=== PATIENT | female | born 1935 | race Caucasian/White ===

== ENCOUNTER 2018-02-20 12:42 | Emergency (ER) | payer MEDICARE, MEDICAID ==
[~2018-02-20] VITALS: Ht 162.6 cm; Wt 63.5 kg
[2018-02-20] MEDS ORDERED: LEVO88TA5 PO (13:47)
[2018-02-20] MEDS ORDERED: NA P133E RC (13:47)
[2018-02-20] MEDS ORDERED: MAGN400O6 PO (13:47)
[2018-02-20] MEDS ORDERED: BISA10SU12 RC (13:47)
[2018-02-20] MEDS ORDERED: CHOL100045 PO (13:47)
[2018-02-20] MEDS ORDERED: POTA10CA43 PO (13:47)
[2018-02-20] MEDS ORDERED: FURO-152 PO (13:47)
[2018-02-20] MEDS ORDERED: ATOR10TA PO (13:47)
[2018-02-20] MEDS ORDERED: MEMA5TAB PO (13:47)
[2018-02-20] MEDS ORDERED: PRED1TAB PO (13:47)
[2018-02-20] MEDS ORDERED: ASPI81TA31 PO (13:47)
[2018-02-20] MEDS ORDERED: FOLI1TAB16 PO (13:47)
[2018-02-20 13:55] LABS: BASOPHILS % (AUTO) 0.3 % (0.0-2.0); EOSINOPHILS # (AUTO) 0.2 K/uL (0.0-0.7); EOSINOPHILS % (AUTO) 1.2 % (0.0-7.0); HEMATOCRIT 41.8 % (31.2-41.9); HEMOGLOBIN 13.9 g/dL (10.9-14.3); LYMPHOCYTES # (AUTO) 1.1 K/uL (20.0-40.0); LYMPHOCYTES % (AUTO) 7.6 % (20.5-51.5); MEAN CORPUSCULAR HEMOGLOBIN 28.5 uug (24.7-32.8); MEAN CORPUSCULAR HGB CONC 33 g/dL (32.3-35.6); MEAN CORPUSCULAR VOLUME 85.6 fL (75.5-95.3); MONOCYTES # (AUTO) 0.9 K/uL (2.0-10.0); MONOCYTES % (AUTO) 6.3 % (0.0-11.0); NEUTROPHILS # (AUTO) 11.8 K/uL (1.8-8.9); NEUTROPHILS % (AUTO) 84.6 % (38.5-71.5); PLATELET COUNT (AUTO) 233 K/uL (179-408); RED BLOOD CELL COUNT(AUTO) 4.88 MIL/uL (3.63-4.92)
[2018-02-20] MEDS ORDERED: ONDANSETRON 4 MG/2 ML VIAL IV ONE (14:00)
[2018-02-20] MEDS ORDERED: HYDROMORPHONE 1 MG/1 ML DISP.SYRIN IV ONE (14:00)
[2018-02-20] MEDS ORDERED: ONDANSETRON 4 MG/2 ML VIAL ONE (14:01)
[2018-02-20] MEDS ORDERED: HYDROMORPHONE 2 MG/1 ML DISP.SYRIN ONE (14:01)
[2018-02-20 14:04] LABS: CARBON DIOXIDE 30 mmol/L (21-32); CHLORIDE 104 mmol/L (98-107); CREATININE 1.1 mg/dL (0.6-1.3); GLUCOSE 102 mg/dL (74-106); POTASSIUM 3.9 mmol/L (3.5-5.1); UREA NITROGEN, BLOOD 19 mg/dL (7-18)
[2018-02-20 14:10] LABS: ALANINE AMINOTRANSFERASE 18 U/L (14-59); ALKALINE PHOSPHATASE 112 U/L (50-136); ASPARTATE AMINOTRANSFERASE 19 U/L (15-37); BILIRUBIN,DIRECT 0.2 mg/dL (0.0-0.2); BILIRUBIN,TOTAL 0.8 mg/dL (0.2-1.0); TOTAL PROTEIN, SERUM 7.9 g/dL (6.4-8.2)
--- NOTE | 2018-02-20 16:28 | NUR ---
PT ABLE TO AMBULATE WITH ASSISSTANCE, NO PAIN EXPRESSED WHILE WALKING.
--- NOTE | 2018-02-20 16:30 | NUR ---
CALLED RAMAKRISHNA TO TRANSFER THE PT BACK TO [facility]. ETA [id number]. TICKET # [id number]
--- NOTE | 2018-02-20 18:04 | NUR ---
RAMAKRISHNA AT BEDSIDE TO TRANSFER THE PT BACK TO [facility].
[2018-02-20 18:05] VITALS: BP 121/55
--- NOTE | 2018-02-20 18:08 | NUR ---
CALLED [facility] CONK[facility] AND LET THEM THAT THE PT IS COMING BACK
== END 2018-02-20 18:10 | disposition home or self-care (01) ==
LOC: ER 12:42
DX: S70.02XA Contusion of left hip, initial encounter (principal); I25.10 Atherosclerotic heart disease of native coronary artery without angina pectoris; I10 Essential (primary) hypertension; E03.9 Hypothyroidism, unspecified; R07.89 Other chest pain; Z88.5 Allergy status to narcotic agent; Z91.048 Other nonmedicinal substance allergy status; Z79.82 Long term (current) use of aspirin; Z79.899 Other long term (current) drug therapy; W18.39XA Other fall on same level, initial encounter; Y93.89 Activity, other specified; Y92.89 Other specified places as the place of occurrence of the external cause; Y99.8 Other external cause status
CPT/HCPCS: 36415; 70030-TC; 71045; 72170; 72192; 73502; 83605; 85025; 85730; 87040; 93005; A4663; J1170; J2405

== ENCOUNTER 2018-03-03 15:30 | Inpatient (IN) | payer MEDICARE, MEDICAID ==
[~2018-03-03] VITALS: Ht 152.4 cm; Wt 48.5 kg
[~2018-03-03 15:30] MED LIST: ASPI81TA31 PO; ATOR10TA PO; BISA10SU12 RC; CHOL100045 PO; FOLI1TAB16 PO; FURO-152 PO; LEVO88TA5 PO; MAGN400O6 PO; MEMA5TAB PO; NA P133E RC; POTA10CA43 PO; PRED1TAB PO
[2018-03-03] MEDS ORDERED: IV NORMAL SALINE 500 ML BAG IV ONE (15:45)
[2018-03-03] MEDS ORDERED: HYDR-3326 PO (16:05)
[2018-03-03] MEDS ORDERED: ACET-2154 PO (16:05)
[2018-03-03 16:06] LABS: BASOPHILS # (AUTO) 0.1 K/uL (0.0-8.0); BASOPHILS % (AUTO) 0.7 % (0.0-2.0); EOSINOPHILS # (AUTO) 0.2 K/uL (0.0-0.7); EOSINOPHILS % (AUTO) 2.7 % (0.0-7.0); HEMATOCRIT 38.4 % (31.2-41.9); HEMOGLOBIN 12.4 g/dL (10.9-14.3); LYMPHOCYTES # (AUTO) 0.9 K/uL (20.0-40.0); LYMPHOCYTES % (AUTO) 11.6 % (20.5-51.5); MEAN CORPUSCULAR HEMOGLOBIN 27.5 uug (24.7-32.8); MEAN CORPUSCULAR HGB CONC 32 g/dL (32.3-35.6); MEAN CORPUSCULAR VOLUME 85.1 fL (75.5-95.3); MONOCYTES # (AUTO) 0.6 K/uL (2.0-10.0); MONOCYTES % (AUTO) 7.2 % (0.0-11.0); NEUTROPHILS # (AUTO) 6.2 K/uL (1.8-8.9); NEUTROPHILS % (AUTO) 77.8 % (38.5-71.5); PLATELET COUNT (AUTO) 251 K/uL (179-408); RED BLOOD CELL COUNT(AUTO) 4.51 MIL/uL (3.63-4.92)
[2018-03-03 16:17] LABS: CARBON DIOXIDE 28 mmol/L (21-32); CHLORIDE 103 mmol/L (98-107); CREATININE 1.2 mg/dL (0.6-1.3); GLUCOSE 112 mg/dL (74-106); POTASSIUM 4.4 mmol/L (3.5-5.1); UREA NITROGEN, BLOOD 25 mg/dL (7-18)
[2018-03-03] MEDS ORDERED: FUROSEMIDE 20 MG/2 ML VIAL IV ONE (17:30)
[2018-03-03] MEDS ORDERED: FUROSEMIDE 40 MG/4 ML VIAL ONE (17:32)
[2018-03-03] MEDS ORDERED: ONDANSETRON IV *ER 4 MG/2 ML VIAL IV ONE (17:45)
[2018-03-03] MEDS ORDERED: MORPHINE SULFATE 4 MG/1 ML DISP.SYRIN IV ONE (17:45)
[2018-03-03 17:46] LABS: *BILIRUBIN,URIN NEGATIVE (NEGATIVE); *BLOOD, URINE Trace-lysed (NEGATIVE); *COLOR,URINE YELLOW (YELLOW); *KETONES,URINE NEGATIVE (NEGATIVE); *PROTEIN,URINE NEGATIVE (NEGATIVE); *UROBILINOGEN,URINE 0.2 E.U./dl (NORMAL); LEUKOCYTE ESTERASE ,URINE 1+ (NEGATIVE); NITRITE, URINE POSITIVE (NEGATIVE); UGLUCOSE NEGATIVE (NEGATIVE)
[2018-03-03 17:51] LABS: *CLARITY,URINE CLOUDY (CLEAR)
[2018-03-03 17:52] LABS: BACTERIA,URINE MANY /HPF (NONE SEEN); RBC,URINE 0-3 /HPF (0-3)
[2018-03-03 17:53] LABS: SQUAMOUS EPITHELIAL CELL,UR MANY /HPF (NONE SEEN)
[2018-03-03] MEDS ORDERED: ONDANSETRON 4 MG/2 ML VIAL ONE (17:53)
[2018-03-03] MEDS ORDERED: MORPHINE SULFATE 4 MG/1 ML DISP.SYRIN ONE (17:53)
--- NOTE | 2018-03-03 17:53 | NUR ---
MSE COMPLETED, PT TO BE TELE ADMIT, BELONGINGS LIST DONE. PT POSITIONED FOR COMFORT, PER JIGAR RN-CHIEF PETROLEUM ENGINEER, ALL NURSES ARE MAXED OUT AND PT JOY HELD TILL NEXT SHIFT. Jed OHARA THE NURSE SUP CONFIRMED STATUS.
[2018-03-03] MEDS ORDERED: CEFTRIAXONE 1 G VIAL ONE (18:14)
[2018-03-03] MEDS ORDERED: LORAZEPAM 2 MG/1 ML VIAL ONE (18:14)
[2018-03-03] MEDS ORDERED: CEFTRIAXONE 1 G in IV DEXTROSE 5% 50 ML IV ONE (18:15)
[2018-03-03] MEDS ORDERED: LORAZEPAM 2 MG/1 ML VIAL IV ONE (18:15)
[2018-03-03 18:54] LABS: ALANINE AMINOTRANSFERASE 15 U/L (14-59); ALKALINE PHOSPHATASE 110 U/L (50-136); ASPARTATE AMINOTRANSFERASE 25 U/L (15-37); BILIRUBIN,DIRECT 0.2 mg/dL (0.0-0.2); BILIRUBIN,TOTAL 0.6 mg/dL (0.1-1.0)
[2018-03-03 18:55] LABS: LIPASE 110 U/L (73-393); TOTAL PROTEIN, SERUM 6.8 g/dL (6.4-8.2)
--- NOTE | 2018-03-03 19:04 | NUR ---
PT SLEEPING NO DISTRESS NOTED, SBAR REPORT TO ED RN.
--- NOTE | 2018-03-03 20:00 | NUR ---
Pt. admitted to [facility] , under care of Dr. Hansel Daley. Diagnosis: UTI Belongs List completed. MRSA swab done. Report given to Patrice BLAIR.
[2018-03-03] MEDS ORDERED: ONDANSETRON 4 MG/2 ML VIAL IV PRN (20:15)
[2018-03-03] MEDS ORDERED: BISACODYL 10 MG SUPP.RECT RC PRN (20:15)
[2018-03-03] MEDS ORDERED: ACETAMINOPHEN 325 MG TABLET PO PRN (20:15)
[2018-03-03] MEDS ORDERED: HYDROCODONE/APAP 5-325MG TABLET PO PRN (20:15)
[2018-03-03] MEDS ORDERED: FLEET ENEMA 133 ML BOTTLE RC PRN (20:15)
[2018-03-03] MEDS ORDERED: MAGNESIUM HYDROXIDE 30 ML LIQUID UDC PO PRN (20:15)
[2018-03-03 20:17] VITALS: BP 119/63
[2018-03-03] MEDS: IV NS 1000 ML 1,000 ML IV PRN (20:35)
[2018-03-03] MEDS: DOCUSATE SODIUM 100 MG CAPSULE PO SCH (20:51)
[2018-03-03] MEDS: MORPHINE SULFATE 2 MG/1 ML DISP.SYRIN IV PRN (20:52)
--- NOTE | 2018-03-03 22:00 | NUR ---
Admitted the 82 y/o female patient from ER by apryl . Pt has admitting diagnosis of UTI and general weakness . Pt is normal sinus rhythm on the monitor , vital signs stable . Pt is lethargic and slow to respond , pt had Ativan in ER , pt has a 20 gauge IV in the left AC , no signs of infiltration or infection, Initial assessment and physical assessment done , pt on a continuous IV drip of Normal saline at 70 mL / hr .Will continue to monitor patient for safety . Pt appears thin and has a failure to thrive . Pt has rib bones showing underneath the skin , fat stores look depleted . Pt has no chest pain , no shortness of breath , no nausea / vomiting . Pt is incontinent with a diaper .
[2018-03-04] VITALS: BP 122/61
[2018-03-04 04:00] VITALS: BP 118/66
[2018-03-04] MEDS: LEVOTHYROXINE SODIUM 88 MCG TABLET PO SCH (06:09)
[2018-03-04] MEDS: PANTOPRAZOLE SODIUM 40 MG TABLET.DR PO SCH (06:09)
--- NOTE | 2018-03-04 06:20 | NUR ---
Patient had medications crushed ( Protonix , Levothyroxine , and [place] ) and given in applesauce . Patient would not eat the applesauce , she spit some of it out . Could not convince patient to eat the applesauce with the medications.
[2018-03-04 06:24] LABS: BASOPHILS # (AUTO) 0.1 K/uL (0.0-8.0); BASOPHILS % (AUTO) 0.8 % (0.0-2.0); EOSINOPHILS # (AUTO) 0.4 K/uL (0.0-0.7); EOSINOPHILS % (AUTO) 5.1 % (0.0-7.0); HEMATOCRIT 37.2 % (31.2-41.9); HEMOGLOBIN 12.5 g/dL (10.9-14.3); LYMPHOCYTES # (AUTO) 1.5 K/uL (20.0-40.0); LYMPHOCYTES % (AUTO) 17.1 % (20.5-51.5); MEAN CORPUSCULAR HEMOGLOBIN 28.8 uug (24.7-32.8); MEAN CORPUSCULAR HGB CONC 34 g/dL (32.3-35.6); MEAN CORPUSCULAR VOLUME 85.4 fL (75.5-95.3); MONOCYTES # (AUTO) 0.7 K/uL (2.0-10.0); MONOCYTES % (AUTO) 8.3 % (0.0-11.0); NEUTROPHILS # (AUTO) 5.9 K/uL (1.8-8.9); NEUTROPHILS % (AUTO) 68.7 % (38.5-71.5); PLATELET COUNT (AUTO) 227 K/uL (179-408); RED BLOOD CELL COUNT(AUTO) 4.35 MIL/uL (3.63-4.92); WHITE BLOOD COUNT (AUTO) 8.6 K/uL (3.8-11.8)
[2018-03-04 06:57] LABS: ALANINE AMINOTRANSFERASE 14 U/L (14-59); ALKALINE PHOSPHATASE 104 U/L (50-136); ASPARTATE AMINOTRANSFERASE 16 U/L (15-37); BILIRUBIN,TOTAL 0.5 mg/dL (0.2-1.0); CARBON DIOXIDE 30 mmol/L (21-32); CHLORIDE 105 mmol/L (98-107); CREATININE 1.1 mg/dL (0.6-1.3); MAGNESIUM 1.7 mg/dL (1.8-2.4); PHOSPHOROUS 3.7 mg/dL (2.5-4.9); POTASSIUM 3.3 mmol/L (3.5-5.1); TOTAL PROTEIN, SERUM 6.3 g/dL (6.4-8.2); UREA NITROGEN, BLOOD 18 mg/dL (7-18)
[2018-03-04 06:58] LABS: THYROID STIMULATING HORMONE 2.852 mIU/mL (0.358-3.740)
--- NOTE | 2018-03-04 07:25 | NUR ---
RECEIVED PT IN BED AWAKE, NOTED THE PT TO BE EMOTIONAL, CRYING AND SAD. ASKED PT IF EVERYTHING WAS OKAY OR IF ANYTHING WAS WRONG, PT IS UNABLE TO RESPONSE, CONTINUE TO BE EMOTIONAL. NO IMMEDIATE S/S OF SOB, PAIN, DISTRESS OR DISCOMFORT
[2018-03-04 07:43] LABS: IRON, SERUM 53 ug/dL (50-175)
[2018-03-04 07:44] LABS: CHOLESTEROL 145 mg/dL (<200); HDL CHOLESTEROL 61 mg/dL (40-60); TRIGLYCERIDES 74 MG/DL (30-150)
[2018-03-04] MEDS: MEMANTINE HCL 5 MG TABLET PO SCH ×3 (08:36→17:19)
[2018-03-04] MEDS: predniSONE 1 MG TABLET PO SCH (08:36)
[2018-03-04] MEDS: ASPIRIN 81 MG TAB.CHEW PO SCH (08:36)
[2018-03-04] MEDS: FOLIC ACID 1 MG TABLET PO SCH (08:36)
[2018-03-04] MEDS: CHOLECALCIFEROL 1,000 UNIT TABLET PO SCH (08:36)
[2018-03-04] MEDS: MORPHINE SULFATE 2 MG/1 ML DISP.SYRIN IV PRN ×3 (08:37→23:30)
--- NOTE | 2018-03-04 08:50 | NUR ---
PT WAS NOTED TO BE MOANING AND C/O OF PAIN, MORPHINE GIVEN. PT TOOK MORNING MEDS CRUSHED WITH APPLE SAUCE. TOOK ABOUT 15-20 MINUTES TO GIVE PT'S MORNING MEDICATIONS. EXPLAINED MEDICATIONS TO PT. PT AOX1. PT IS NOTED TO BE CRYING AND SAD
[2018-03-04 09:42] LABS: GLUCOSE 77 mg/dL (74-106)
[2018-03-04] MEDS: Z GUARD REMEDY PASTE 57 GM TUBE TOP SCH ×2 (09:59→20:35)
--- NOTE | 2018-03-04 10:00 | NUR ---
SEEN AND EVALUATED BY DR LEYVA
[2018-03-04] MEDS: MAGNESIUM OXIDE 400 MG TABLET PO ONE ×2 (10:15→14:25)
[2018-03-04] MEDS: POTASSIUM CHLORIDE 20 MEQ TAB.PRT.SR PO ONE ×2 (10:15→14:25)
[2018-03-04] MEDS: IV NS 1000 ML 1,000 ML IV PRN (10:55)
--- NOTE | 2018-03-04 14:37 | NUR ---
MAG AND K-DUR PILLS CRUSHED AND MIXED WITH APPLE SAUCE. PT SPIT OUT MEDICATIONS.
[2018-03-04 16:21] VITALS: BP 139/76
[2018-03-04] MEDS: CEFTRIAXONE 1 G in IV DEXTROSE 5% 50 ML IV SCH (17:19)
--- NOTE | 2018-03-04 17:27 | NUR ---
PT REFUSED 17OO HRS SCHEDULED MEDICATION
[2018-03-04] MEDS: MAGNESIUM SULFATE/D5W 100 ML IV SCH ×2 (18:06→19:05)
--- NOTE | 2018-03-04 18:28 | NUR ---
PT HAS BEEN EMOTIONAL THROUGHOUT THE DAY BY CRYING, SCREAMING AND CALLING OUT GRISEL AND AMADO, AND ASKING FOR HER DOG. NOTED THE PT WITH A BRUISE ON HER LEFT HIP. DR AWARE ABOUT THE PT'S CRYING AND BRUISE. PT HAS BEEN C/O OF BILATERAL LOWER EXTREMITIES PAIN. AIR MATTRESS IN PLACE. PT HAS BEEN NON-COMPLIANT WITH PO MEDICATIONS.
--- NOTE | 2018-03-04 19:45 | NUR ---
Patient in bed turned to right side. IV intact and patent. Currently infusing remaining magnesium. To administer potassium as ordered after completion. Patient constantly crying. Attempts made to calm patient down. Unsuccessful. Patient calling out various names. Patient incontinent. No bm noted currently. Will continue to monitor.
[2018-03-04 20:00] VITALS: BP 161/84
[2018-03-04] MEDS: DOCUSATE SODIUM 100 MG CAPSULE PO SCH (20:34)
--- NOTE | 2018-03-04 20:34 | NUR ---
Patient offered colace medication but spit medication out. Patient assertively refusing medications.
[2018-03-04] MEDS: POTASSIUM CHLORIDE 50 ML IV SCH ×4 (20:37→23:37)
--- NOTE | 2018-03-04 21:49 | NUR ---
Potassium infusing as ordered. IV site remains intact. No complaints of burning. No s/s of infiltration. Noted patient continues to remain hyperverbal and verbalization of delusion. No increase in agitation. Safety measure in place. Bed alarm initiated. Frequent visual checks. Call light in reach. Will continue to monitor.
[2018-03-05] VITALS: BP 120/87
--- NOTE | 2018-03-05 01:42 | NUR ---
Patient in pain. Pain medication administered and effective. Carmen-care provided with assistance from ENGAGEMENT QUALITY CONSULTANT. Z-guard applied as ordered Linens and gown changed as well. Patient uncooperative during care. Patient continues to verbalize delusion. Patient IV site noted with no s/s of infiltration. Call light in reach. Bed alarm on. Will continue to monitor.
--- NOTE | 2018-03-05 03:15 | NUR ---
L AC 20 gauge dislodged. Patient required two person assistance to start new IV line. New L fore arm 22 gauge patent and intact.
[2018-03-05] MEDS: MORPHINE SULFATE 2 MG/1 ML DISP.SYRIN IV PRN ×2 (03:31→12:21)
--- NOTE | 2018-03-05 03:38 | NUR ---
Patient noted to be in pain. Pain medication administered. Minimizing sedating medication as directed however patient continues to verbalize delusion which seem to be affecting patient comfort.
[2018-03-05 04:00] VITALS: BP 123/71
--- NOTE | 2018-03-05 05:23 | NUR ---
Turned and repositioned every 2 hours. Moira-tory as ordered. Pain medication effective and patient able to get rest. Blood drawn by ammonia print operator.
[2018-03-05] MEDS: LEVOTHYROXINE SODIUM 88 MCG TABLET PO SCH (06:04)
[2018-03-05] MEDS: PANTOPRAZOLE SODIUM 40 MG TABLET.DR PO SCH (06:04)
--- NOTE | 2018-03-05 06:05 | NUR ---
Patient offered medication, initially took them but spit it all out.
[2018-03-05 06:26] LABS: BASOPHILS # (AUTO) 0.1 K/uL (0.0-8.0); BASOPHILS % (AUTO) 0.6 % (0.0-2.0); EOSINOPHILS # (AUTO) 0.2 K/uL (0.0-0.7); EOSINOPHILS % (AUTO) 2.1 % (0.0-7.0); HEMATOCRIT 41.7 % (31.2-41.9); HEMOGLOBIN 13.9 g/dL (10.9-14.3); LYMPHOCYTES # (AUTO) 0.9 K/uL (20.0-40.0); LYMPHOCYTES % (AUTO) 8.7 % (20.5-51.5); MEAN CORPUSCULAR HEMOGLOBIN 28.1 uug (24.7-32.8); MEAN CORPUSCULAR HGB CONC 33 g/dL (32.3-35.6); MEAN CORPUSCULAR VOLUME 84.6 fL (75.5-95.3); MONOCYTES # (AUTO) 0.8 K/uL (2.0-10.0); MONOCYTES % (AUTO) 8.2 % (0.0-11.0); NEUTROPHILS # (AUTO) 8.2 K/uL (1.8-8.9); NEUTROPHILS % (AUTO) 80.4 % (38.5-71.5); PLATELET COUNT (AUTO) 250 K/uL (179-408); RED BLOOD CELL COUNT(AUTO) 4.93 MIL/uL (3.63-4.92); WHITE BLOOD COUNT (AUTO) 10.2 K/uL (3.8-11.8)
[2018-03-05 06:40] LABS: CARBON DIOXIDE 26 mmol/L (21-32); CHLORIDE 105 mmol/L (98-107); GLUCOSE 88 mg/dL (74-106); MAGNESIUM 2.5 mg/dL (1.8-2.4); PHOSPHOROUS 3.5 mg/dL (2.5-4.9); UREA NITROGEN, BLOOD 14 mg/dL (7-18)
[2018-03-05] MEDS: FOLIC ACID 1 MG TABLET PO SCH (09:00)
[2018-03-05] MEDS: predniSONE 1 MG TABLET PO SCH ×2 (09:00→15:00)
[2018-03-05] MEDS: MEMANTINE HCL 5 MG TABLET PO SCH ×2 (09:00→18:08)
[2018-03-05] MEDS: CHOLECALCIFEROL 1,000 UNIT TABLET PO SCH (09:00)
[2018-03-05] MEDS: ASPIRIN 81 MG TAB.CHEW PO SCH ×2 (09:00→15:00)
--- NOTE | 2018-03-05 09:00 | NUR ---
PATIENT REFUSED TO EAT AND TAKE MEDICATIONS. DR GONZALEZ NOTIFIED.
[2018-03-05] MEDS: Z GUARD REMEDY PASTE 57 GM TUBE TOP SCH ×2 (10:09→20:17)
[2018-03-05] MEDS: IV NS 1000 ML 1,000 ML IV PRN (12:21)
--- NOTE | 2018-03-05 12:21 | NUR ---
PATIENT COMPLAINED OF PAIN ON BACK, CRYING AND WITH FACIAL GRIMACE. ASSESSED BP PRIOR TO PAIN MEDICATION ADMINISTRATION, BP OF 167/75. MORPHINE 1 MG ADMINISTERED. WILL CONTINUE TO MONITOR.
--- NOTE | 2018-03-05 12:51 | NUR ---
PT RESTING COMFORTABLY IN BED, ON TELE SINUS RHYTHM WITH HR OF 89, NO SOB, DENIES CHEST PAIN. TREATMENT EFFECTIVE
[2018-03-05 15:45] VITALS: BP 139/77
[2018-03-05] MEDS: CEFTRIAXONE 1 G in IV DEXTROSE 5% 50 ML IV SCH (18:12)
[2018-03-05] MEDS ORDERED: ALBUTEROL SULFATE 2.5 MG/3 ML NEBU NEB PRN (19:15)
[2018-03-05] MEDS ORDERED: IPRATROPIUM BROMIDE 0.5 MG/2.5 ML NEBU NEB PRN (19:15)
[2018-03-05] MEDS: DOCUSATE SODIUM 100 MG CAPSULE PO SCH (20:00)
[2018-03-05 20:03] VITALS: BP 171/77
[2018-03-05] MEDS: risperiDONE 0.5 MG TABLET PO SCH (20:16)
--- NOTE | 2018-03-05 20:32 | NUR ---
Resting in bed comfortably. No adverse reactions to Merrem IV. Both sites intact and patent. Pt continues to Sat 95% on O2 at 3lpm via NC. Sinus Rhythm on monitor. Nettles drained 175cc thus far this shift clear yellow urine. Call light in reach. Continues to occasionally verbalize delusions. Will contineu to monitor Addendum: 03/05/18 at 2035 by SHAWN VILA RN Note entered in Error.
--- NOTE | 2018-03-05 20:36 | NUR ---
Resting in bed. Able to take medications after administering bargaining with patient for 15 minutes. Made comfortably in bed. No complaints of pain at this time. Seen and evaluated by Psych MD earlier. Visited by Grand daughter who assisted patient to eat and take medications.
--- NOTE | 2018-03-05 21:53 | NUR ---
Medication appears to be effective. Patient verbalizing no complaints of pain at this time. No s/s of pain noted. Kept clean and comfortably. Call light in reach at all times. Patient keeping sequential compression devices on both legs tonight.
--- NOTE | 2018-03-05 22:44 | NUR ---
Assisted patient in changing positions. Promptly returned back to sleep. No distress noted at this time. Will continue to monitor.
--- NOTE | 2018-03-06 | NUR ---
Resting comfortably in bed. No complaints of pain at this time. Turned and repositioned.
[2018-03-06 00:13] VITALS: BP 148/62
--- NOTE | 2018-03-06 04:00 | NUR ---
Complaining of pain. Repositioned patient. Patient no longer in pain.
[2018-03-06 04:34] VITALS: BP 139/59
--- NOTE | 2018-03-06 04:40 | NUR ---
Patient complaining of pain. Patient repositioned. Pain corrected
--- NOTE | 2018-03-06 05:00 | NUR ---
Perineal care provided to patient by ELECTRIC RANGE PREPARER. Skin intact. No complaints of pain at this time. Call light in reach. NO SOB noted. Frequent checks
[2018-03-06] MEDS: IV NS 1000 ML 1,000 ML IV PRN ×2 (05:02→21:52)
[2018-03-06] MEDS: PANTOPRAZOLE SODIUM 40 MG TABLET.DR PO SCH (06:17)
[2018-03-06] MEDS: LEVOTHYROXINE SODIUM 88 MCG TABLET PO SCH (06:17)
--- NOTE | 2018-03-06 06:18 | NUR ---
Made multiple attempts to give patient medication. Patient spitting medications back up. Will endorse.
[2018-03-06 06:33] LABS: BASOPHILS % (AUTO) 0.4 % (0.0-2.0); EOSINOPHILS # (AUTO) 0.2 K/uL (0.0-0.7); EOSINOPHILS % (AUTO) 1.8 % (0.0-7.0); HEMATOCRIT 42.1 % (31.2-41.9); LYMPHOCYTES # (AUTO) 0.9 K/uL (20.0-40.0); LYMPHOCYTES % (AUTO) 8.3 % (20.5-51.5); MEAN CORPUSCULAR HEMOGLOBIN 28.3 uug (24.7-32.8); MEAN CORPUSCULAR HGB CONC 33 g/dL (32.3-35.6); MEAN CORPUSCULAR VOLUME 85.4 fL (75.5-95.3); MONOCYTES # (AUTO) 0.9 K/uL (2.0-10.0); NEUTROPHILS # (AUTO) 9.3 K/uL (1.8-8.9); NEUTROPHILS % (AUTO) 81.5 % (38.5-71.5); PLATELET COUNT (AUTO) 230 K/uL (179-408); RED BLOOD CELL COUNT(AUTO) 4.93 MIL/uL (3.63-4.92); WHITE BLOOD COUNT (AUTO) 11.5 K/uL (3.8-11.8)
[2018-03-06 06:50] LABS: ALANINE AMINOTRANSFERASE 16 U/L (14-59); ALKALINE PHOSPHATASE 124 U/L (50-136); ASPARTATE AMINOTRANSFERASE 21 U/L (15-37); BILIRUBIN,TOTAL 0.7 mg/dL (0.2-1.0); CARBON DIOXIDE 25 mmol/L (21-32); CHLORIDE 101 mmol/L (98-107); CREATININE 0.8 mg/dL (0.6-1.3); GLUCOSE 98 mg/dL (74-106); MAGNESIUM 2.1 mg/dL (1.8-2.4); PHOSPHOROUS 3.9 mg/dL (2.5-4.9); POTASSIUM 3.8 mmol/L (3.5-5.1); TOTAL PROTEIN, SERUM 7.1 g/dL (6.4-8.2); UREA NITROGEN, BLOOD 15 mg/dL (7-18)
[2018-03-06] MEDS: PROTEIN SUPPLEMENT (PROSTAT) 30 ML LIQUID PO SCH (08:00)
[2018-03-06] MEDS: predniSONE 1 MG TABLET PO SCH ×2 (09:00→09:08)
[2018-03-06] MEDS: CHOLECALCIFEROL 1,000 UNIT TABLET PO SCH ×2 (09:00→09:08)
[2018-03-06] MEDS: ASPIRIN 81 MG TAB.CHEW PO SCH ×2 (09:00→09:08)
[2018-03-06] MEDS: FOLIC ACID 1 MG TABLET PO SCH (09:07)
[2018-03-06] MEDS: risperiDONE 0.5 MG TABLET PO SCH ×2 (09:08→21:00)
[2018-03-06] MEDS: MEMANTINE HCL 5 MG TABLET PO SCH ×2 (09:09→17:00)
[2018-03-06] MEDS: MORPHINE SULFATE 2 MG/1 ML DISP.SYRIN IV PRN (10:30)
[2018-03-06] MEDS: Z GUARD REMEDY PASTE 57 GM TUBE TOP SCH ×2 (10:30→21:54)
--- NOTE | 2018-03-06 10:40 | NUR ---
PATIENT LEFT FINGER SWOLLEN, SCREAMS IN PAIN WHEN ASSESSING FINGER. PHONE CALLS MADE TO SHARON (GRANDSON/DPOA) AND FERNANDO (DAUGHTER) TO ASK CONSENT IN REGARDS TO REMOVING THE PTs RINGS. GRANDSON AND DAUGHTER AGREED. 3 RINGS REMOVED AND PLACED ON HOSPITAL [facility]AFE (RECEIPT#[id number]).
[2018-03-06 11:58] VITALS: BP 164/72
[2018-03-06 15:45] VITALS: BP 167/76
[2018-03-06 20:00] VITALS: BP 162/73
--- NOTE | 2018-03-06 20:30 | NUR ---
Spit out medication after multiple tries to offer medication to patient. No apparent signs of pain. Noted patient continues to having swelling on left hand as reported by endorsing nurse. Capillary refill and sensation WNL on left extremity. Bed in low position. Alarm engaged. Call light in reach. Will continue to monitor.
[2018-03-06] MEDS: SULFAMETH/TRIMETH 800/160 MG TABLET PO SCH (21:00)
[2018-03-06] MEDS: DOCUSATE SODIUM 100 MG CAPSULE PO SCH (21:00)
--- NOTE | 2018-03-06 23:30 | NUR ---
PM care provided by SHIP PILOT DISPATCHER. Patient screaming during care and appears to be having delusions. Bed alarm engaged. No s/s of infiltration on IV site. Call light in reach. Bed in low position. SCD on both legs. No complaints of pain. Will continue to monitor.
--- NOTE | 2018-03-07 02:51 | NUR ---
Awake alert and confused. Unable to comprehend directions. IV infusing with no s/s of infiltration noted. Environmental stimuli reduced to attempt to promote sleep. Call light in reach. Bed alarm engaged. Bed in low position. Will continue to monitor.
[2018-03-07 04:50] VITALS: BP 175/87
[2018-03-07] MEDS: MORPHINE SULFATE 2 MG/1 ML DISP.SYRIN IV PRN (05:04)
--- NOTE | 2018-03-07 05:14 | NUR ---
Notified by EMAIL ADMINISTRATOR that patient states she is in pain. Noted with facial grimacing and restlessness. Pain medication [id number] as ordered. Turned and repositioned every 2 hours. Will continue to monitor.
--- NOTE | 2018-03-07 05:43 | NUR ---
Perineal care provided. Patient noted with no BM. Dulcolax suppository given.
[2018-03-07] MEDS: LEVOTHYROXINE SODIUM 88 MCG TABLET PO SCH (06:04)
[2018-03-07] MEDS: PANTOPRAZOLE SODIUM 40 MG TABLET.DR PO SCH (06:04)
--- NOTE | 2018-03-07 07:48 | NUR ---
RECEIVED PATIENT AWAKE ON BED, PLEASANTLY CONFUSED. IVF ON LFA, PATENT AND INTACT. SAFETY MEASURE INITIATED. KEPT CALL LIGHT WITHIN REACH. WILL CONTINUE TO MONITOR.
[2018-03-07] MEDS: PROTEIN SUPPLEMENT (PROSTAT) 30 ML LIQUID PO SCH (08:00)
[2018-03-07] MEDS: MEMANTINE HCL 5 MG TABLET PO SCH ×2 (08:08→17:14)
[2018-03-07] MEDS: ASPIRIN 81 MG TAB.CHEW PO SCH (08:08)
[2018-03-07] MEDS: CHOLECALCIFEROL 1,000 UNIT TABLET PO SCH (08:08)
[2018-03-07] MEDS: FOLIC ACID 1 MG TABLET PO SCH (08:08)
[2018-03-07] MEDS: SULFAMETH/TRIMETH 800/160 MG TABLET PO SCH ×2 (08:23→20:57)
[2018-03-07] MEDS: risperiDONE 0.5 MG TABLET PO SCH ×2 (08:23→20:57)
[2018-03-07] MEDS ORDERED: predniSONE 5 MG TABLET PO SCH (09:00)
--- NOTE | 2018-03-07 10:00 | NUR ---
Pt was able to take medications crushed with apple sauce. Call light is within reach.
[2018-03-07 11:13] VITALS: BP 163/79
[2018-03-07] MEDS: Z GUARD REMEDY PASTE 57 GM TUBE TOP SCH ×2 (12:25→21:02)
[2018-03-07] MEDS: IV NS 1000 ML 1,000 ML IV PRN (12:39)
[2018-03-07 15:06] VITALS: BP 119/70
--- NOTE | 2018-03-07 16:00 | NUR ---
Discussed with pts DPOA [facility] and will notify him when orders received for discharge.
--- NOTE | 2018-03-07 16:30 | NUR ---
Pt's DPOA THOMAS Mills [phone] here to see patient. Asked for ID verifications Thomas Mills showed [employer]. Thomas Mills asked and requested to have pt's rings that was taken off from yesterday due to rings were impinging her circulation. Thomas signed release form envelope [id number]. 2 rings still left on pts finger.
--- NOTE | 2018-03-07 17:33 | NUR ---
Pt pocketing food during dinner. Pt continues to have poor appetite. Medications today were successfully given with crushed pills and mixed with chocolate pudding. Call light is within reach.
--- NOTE | 2018-03-07 18:54 | NUR ---
Confirmed with SONY, admitting director, heri montemayor bed available Addendum: 03/07/18 at 1857 by HOMER LARRY BLAIR Pt is to go to [facility] rm 21 bed B per sony. Called Thomas OCONNOR notified pt will be going back to [facility]. Family ok with pt going back. Will call ambulance for supervisor display fabrication. Pt is in no acute distress. Call light is within reach.
[2018-03-07 19:00] VITALS: BP 125/68
[2018-03-07] MEDS: DOCUSATE SODIUM 100 MG CAPSULE PO SCH (20:57)
== END 2018-03-07 21:34 | DRG 871 ==
LOC: ER 15:31 → TELE 19:50 → MED 03-05 19:00
PROVIDERS: ADMIT Internal Medicine; ATTEND Internal Medicine
DX: A41.51 Sepsis due to Escherichia coli [E. coli] (principal); G92 Toxic encephalopathy; E43 Unspecified severe protein-calorie malnutrition; N17.0 Acute kidney failure with tubular necrosis; N39.0 Urinary tract infection, site not specified; K56.7 Ileus, unspecified; Z79.899 Other long term (current) drug therapy; E87.6 Hypokalemia; Z79.82 Long term (current) use of aspirin; F03.90 Unspecified dementia, unspecified severity, without behavioral disturbance, psychotic disturbance, mood disturbance, and anxiety; J44.9 Chronic obstructive pulmonary disease, unspecified; I25.10 Atherosclerotic heart disease of native coronary artery without angina pectoris; Z95.5 Presence of coronary angioplasty implant and graft; M06.9 Rheumatoid arthritis, unspecified; A03.9 Shigellosis, unspecified; R62.7 Adult failure to thrive; Z98.1 Arthrodesis status; M81.0 Age-related osteoporosis without current pathological fracture; M19.042 Primary osteoarthritis, left hand; M18.9 Osteoarthritis of first carpometacarpal joint, unspecified; E03.9 Hypothyroidism, unspecified; Z68.20 Body mass index [BMI] 20.0-20.9, adult; E86.0 Dehydration; Z91.81 History of falling; R26.81 Unsteadiness on feet; M16.0 Bilateral primary osteoarthritis of hip; I25.2 Old myocardial infarction; I11.9 Hypertensive heart disease without heart failure; E83.42 Hypomagnesemia; Z66 Do not resuscitate
CPT/HCPCS: 36415; 70030-TC; 70450; 71045; 73130; 83550; 83605; 83690; 83735; 84100; 84443; 85025; 85730; 86140; 87040; 87077; 87086; 93005; 97110; 97530; A4663; J0696; J1940; J2060; J2270; J2405; J3475; J3480; J7030; J7060; J7512

== ENCOUNTER 2018-03-09 16:55 | Inpatient (IN) | payer MEDICARE, MEDICAID ==
[~2018-03-09] VITALS: Ht 165.1 cm; Wt 43.1 kg
[~2018-03-09 16:55] MED LIST changes: +ACET-2154 PO; +HYDR-3326 PO
[2018-03-09 17:47] LABS: BASOPHILS # (AUTO) 0.1 K/uL (0.0-8.0); BASOPHILS % (AUTO) 0.5 % (0.0-2.0); EOSINOPHILS # (AUTO) 0.3 K/uL (0.0-0.7); EOSINOPHILS % (AUTO) 2.3 % (0.0-7.0); HEMATOCRIT 40.8 % (31.2-41.9); HEMOGLOBIN 13.3 g/dL (10.9-14.3); LYMPHOCYTES % (AUTO) 7.4 % (20.5-51.5); MEAN CORPUSCULAR HGB CONC 33 g/dL (32.3-35.6); MEAN CORPUSCULAR VOLUME 85.4 fL (75.5-95.3); MONOCYTES % (AUTO) 7.4 % (0.0-11.0); NEUTROPHILS # (AUTO) 10.9 K/uL (1.8-8.9); NEUTROPHILS % (AUTO) 82.4 % (38.5-71.5); PLATELET COUNT (AUTO) 307 K/uL (179-408); RED BLOOD CELL COUNT(AUTO) 4.77 MIL/uL (3.63-4.92); WHITE BLOOD COUNT (AUTO) 13.2 K/uL (3.8-11.8)
[2018-03-09 17:54] LABS: CARBON DIOXIDE 25 mmol/L (21-32); CHLORIDE 106 mmol/L (98-107); CREATININE 0.7 mg/dL (0.6-1.3); GLUCOSE 100 mg/dL (74-106); POTASSIUM 3.9 mmol/L (3.5-5.1); UREA NITROGEN, BLOOD 32 mg/dL (7-18)
[2018-03-09 18:00] LABS: ALANINE AMINOTRANSFERASE 19 U/L (14-59); ALKALINE PHOSPHATASE 106 U/L (50-136); ASPARTATE AMINOTRANSFERASE 19 U/L (15-37); BILIRUBIN,DIRECT 0.2 mg/dL (0.0-0.2); BILIRUBIN,TOTAL 0.5 mg/dL (0.2-1.0); TOTAL PROTEIN, SERUM 6.6 g/dL (6.4-8.2)
[2018-03-09 18:02] LABS: ACETAMINOPHEN < 2.0 ug/mL (10-30)
--- NOTE | 2018-03-09 18:02 | NUR ---
PT IS IN ROOM #2A. DR VILLA EVALUATED THE PT.
[2018-03-09 18:04] LABS: ETHANOL < 3 MG/DL (0-0)
--- NOTE | 2018-03-09 19:13 | NUR ---
REPORT GIVEN TO ROSSY FRYE.
[2018-03-09] MEDS ORDERED: ACETAMINOPHEN 325 MG TABLET PO PRN ×2 (20:30→21:15)
[2018-03-09] MEDS ORDERED: BISACODYL 10 MG SUPP.RECT RC PRN (20:30)
[2018-03-09] MEDS ORDERED: FLEET ENEMA 133 ML BOTTLE RC PRN (20:30)
[2018-03-09] MEDS ORDERED: MAGNESIUM HYDROXIDE 30 ML LIQUID UDC PO PRN ×2 (20:30→21:15)
--- NOTE | 2018-03-09 20:39 | NUR ---
Pt. admitted to [facility], under care of Dr. Alexander Belongs List completed
[2018-03-09] MEDS: ATORVASTATIN 10 MG TABLET PO SCH (21:00)
[2018-03-09] MEDS ORDERED: MAG HYDROX/AL HYDROX/SIMETH 30 ML LIQUID UDC PO PRN (21:15)
[2018-03-09] MEDS ORDERED: TEMAZEPAM 7.5 MG CAPSULE PO PRN (21:15)
--- NOTE | 2018-03-09 22:00 | NUR ---
ADMISSION NOTES: 82 Y.O. FEMAILE BROUGHT TO [facility] FROM ER VIA GURNEY, ACCOMPANIED BY ER STAFF, Pt ON A 5150 HOLD FOR GD. ACCORDING TO THE HOLD, Pt HAS NOT BEEN EATING AT HER NURSING FACILITY AND REFUSING ALL CARE. WHEN INTERVIEWED AT BED SIDE, Pt APPEARED SAD AND HOPELESS. WHEN ASKED WHY SHE WAS NOT EATING, SHE STARED STRAIGHT AHEAD AND MADE NO RESPONSE. STAFF AT THE FACILITY REPORTS THAT SINCE Pt RETURNED TO NURSING FACILITY AFTER MOST RECENT HOSPITALIZATION, SHE HAS BEEN REFUSING ALL CARE FROM STAFF. RN CONCURS WITH THE HOLD. ADVISEMENT AND PATIENT RIGHTS HANDBOOK GIVEN. UPON FACE TO FACE ASSESSMENT, Pt APPEARS TO REFLECT WHAT IS ON THE HOLD. Pt IS ALERT AND ORIENT TO NAME BUT CONFUSED AND DISORIENTED. WHEN ASKED BY NURSE WHY SHE IS HERE, Pt IS UNABLE TO RESPOND APPROPRIATELY. UNABLE TO OBTAIN INFORMATION FROM Pt. UNABLE TO ASSESS FOR S/I, S/A, Pt NOT NOTED TO BE HALLUCINATING. Pt APPEARS UNKEMPT, SOME SKIN PROBLEMS NOTED. Pt LEFT LOWER ARM AND HANDS ARE RED AND WARM. Pt ALSO HAS REDNESS ON SACRAL AREA. Pt IS UNABLE TO AMBULATE, EXTREMELY WEAK BILATERALLY ON BOTH LOWER EXTREMITIES. Pt IS UNABLE TO MOVE HER LEFT UPPER ARM. DR. OLIVER AND DR. HENDRIX NOTIFIED OF ADMISSION, ORDERS RECEIVED. WILL NOTIFY Pt FAMILY AT A MORE APPROPRIATE TIME IN THE MORNING. NO AGGRESSIVE BEHAVIORS NOTED, WILL CONTINUE TO MONITOR Pt BEHAVIOR CLOSELY.
[2018-03-09 22:48] VITALS: BP 150/69
[2018-03-10] MEDS ORDERED: Z GUARD REMEDY PASTE 57 GM TUBE TOP PRN (03:30)
[2018-03-10] MEDS: LEVOTHYROXINE SODIUM 88 MCG TABLET PO SCH (06:55)
[2018-03-10] MEDS: MEMANTINE HCL 5 MG TABLET PO SCH ×2 (08:26→17:00)
[2018-03-10] MEDS: FOLIC ACID 1 MG TABLET PO SCH (08:26)
[2018-03-10] MEDS: FUROSEMIDE 20 MG TABLET PO SCH (08:26)
[2018-03-10] MEDS: ASPIRIN 81 MG TAB.CHEW PO SCH (08:26)
[2018-03-10] MEDS: Z GUARD REMEDY PASTE 57 GM TUBE TOP SCH ×2 (08:34→20:17)
[2018-03-10] MEDS: predniSONE 1 MG TABLET PO SCH (08:34)
[2018-03-10] MEDS: CHOLECALCIFEROL 1,000 UNIT TABLET PO SCH (08:47)
[2018-03-10] MEDS: POTASSIUM CHLORIDE 10 MEQ TAB.PRT.SR PO SCH (08:48)
--- NOTE | 2018-03-10 12:36 | NUR ---
Initial Discharge Instructions: Patient currently resides at [facility] [[address], [place] [address]; ]. Spoke with patient's family, Thomas and Judith ([phone]) who would like the patient to return there when ready. Spoke with Max at the facility who states the patient may return to the facility upon discharge. SW will continue to collaborate with pt, family, and MD regarding appropriate discharge plans. SW will form a safe and proper discharge plan.
[2018-03-10 12:42] LABS: *BILIRUBIN,URIN 1+ (NEGATIVE); *BLOOD, URINE 2+ (NEGATIVE); *COLOR,URINE YELLOW (YELLOW); *KETONES,URINE 2+ (NEGATIVE); *PROTEIN,URINE 1+ (NEGATIVE); *UROBILINOGEN,URINE 0.2 E.U./dl (NORMAL); LEUKOCYTE ESTERASE ,URINE TRACE (NEGATIVE); NITRITE, URINE NEGATIVE (NEGATIVE); PH,URINE 5.5 (5.0-8.0); UGLUCOSE NEGATIVE (NEGATIVE)
[2018-03-10 12:57] LABS: *AMPHETAMINE, URINE NEGATIVE (NEGATIVE); *BARBITURATE, URINE NEGATIVE (NEGATIVE); *CANNABINOID, URINE NEGATIVE (NEGATIVE); *COCCAINE, URINE NEGATIVE (NEGATIVE); *OPIATE, URINE POSITIVE (NEGATIVE); *PHENCYCLIDINE SCREEN,URINE NEGATIVE (NEGATIVE)
[2018-03-10 12:59] LABS: *CLARITY,URINE HAZY (CLEAR)
[2018-03-10 13:05] LABS: RBC,URINE 20-50 /HPF (0-3)
[2018-03-10 13:08] LABS: BACTERIA,URINE NONE SEEN /HPF (NONE SEEN)
[2018-03-10 13:09] LABS: SQUAMOUS EPITHELIAL CELL,UR FEW /HPF (NONE SEEN); URINE AMORPHOUS URATE FEW /HPF
[2018-03-10 13:10] LABS: MUCUS,URINE FEW /LPF (0-FEW)
[2018-03-10 15:16] VITALS: BP 152/70
--- NOTE | 2018-03-10 16:02 | NUR ---
[address] Petty regarding patient left forearm swollen and red- spoke to MD with order for xray left forearm -carried out.
[2018-03-10 19:54] VITALS: BP 158/77
[2018-03-10] MEDS: ATORVASTATIN 10 MG TABLET PO SCH (20:29)
[2018-03-10] MEDS: RIVASTIGMINE TARTRATE 1.5 MG CAPSULE PO SCH (20:30)
[2018-03-10] MEDS: risperiDONE 0.5 MG TABLET PO SCH (20:30)
[2018-03-10] MEDS: MIRTAZAPINE 15 MG TABLET PO SCH (20:30)
[2018-03-11] MEDS: LEVOTHYROXINE SODIUM 88 MCG TABLET PO SCH (06:03)
--- NOTE | 2018-03-11 06:39 | NUR ---
GPS: REMAIN UNCOOPERATIVE WITH MEDICATION AND CARE EXCEPT TOOK AM PO SYNTHROID. SLEPT 7:30 HRS THROUGH THE NIGHT.PATIENT IS INCONTINENT ASSISTED WITH ADL'S. KEPT CLEAN AND DRY. REPOSITIONED EVERY 2 HRS FOR SKIN SAFETY. PATIENT IS CONFUSED AND DISORIENTED. CRYING SPILL NOTED X2 THROUGH THE NIGHT. CONTINUE MONITORING FOR SAFETY.
[2018-03-11 08:00] VITALS: BP 175/85
[2018-03-11] MEDS: predniSONE 1 MG TABLET PO SCH ×2 (08:19→08:32)
[2018-03-11] MEDS: risperiDONE 0.5 MG TABLET PO SCH ×3 (08:20→20:23)
[2018-03-11] MEDS: FUROSEMIDE 20 MG TABLET PO SCH ×2 (08:20→08:32)
[2018-03-11] MEDS: HYDROCODONE/APAP 5-325MG TABLET PO PRN ×2 (08:21→09:59)
[2018-03-11] MEDS: RIVASTIGMINE TARTRATE 1.5 MG CAPSULE PO SCH ×3 (08:22→20:22)
[2018-03-11] MEDS: FOLIC ACID 1 MG TABLET PO SCH (08:32)
[2018-03-11] MEDS: POTASSIUM CHLORIDE 10 MEQ TAB.PRT.SR PO SCH (08:32)
[2018-03-11] MEDS: ASPIRIN 81 MG TAB.CHEW PO SCH (08:32)
[2018-03-11] MEDS: CHOLECALCIFEROL 1,000 UNIT TABLET PO SCH (08:33)
[2018-03-11] MEDS: Z GUARD REMEDY PASTE 57 GM TUBE TOP SCH ×2 (10:09→20:26)
[2018-03-11 11:37] VITALS: BP 161/69
--- NOTE | 2018-03-11 12:04 | NUR ---
GPS/RN- patient with elevated blood pressure. history of blood pressure, no meds on patient. patient refuses PO medications, Dr Petty advised. orders received and read back for Clonidine 0.1mg patch every week.
[2018-03-11] MEDS ORDERED: CLONIDINE-TTS 1 PATCH TD SCH (12:15)
[2018-03-11 16:18] VITALS: BP 144/73
[2018-03-11 20:00] VITALS: BP 149/62
[2018-03-11] MEDS: ATORVASTATIN 10 MG TABLET PO SCH (20:22)
[2018-03-11] MEDS: MIRTAZAPINE 15 MG TABLET PO SCH (20:22)
[2018-03-12] MEDS: LEVOTHYROXINE SODIUM 88 MCG TABLET PO SCH (06:02)
--- NOTE | 2018-03-12 06:46 | NUR ---
GPS: REMAIN UNCOOPERATIVE WITH MEDICATION AND CARE. SLEPT 7:30 HRS THROUGH THE NIGHT.PATIENT IS INCONTINENT ASSISTED WITH ADL'S. KEPT CLEAN AND DRY. REPOSITIONED EVERY 2 HRS FOR SKIN SAFETY. PATIENT IS CONFUSED AND DISORIENTED. OCC PATIENT TALKING TO HERSELF. CONTINUE MONITORING FOR SAFETY.
[2018-03-12 07:30] VITALS: BP 138/75
[2018-03-12] MEDS: FOLIC ACID 1 MG TABLET PO SCH (09:00)
[2018-03-12] MEDS: CHOLECALCIFEROL 1,000 UNIT TABLET PO SCH (09:00)
[2018-03-12] MEDS: risperiDONE 0.5 MG TABLET PO SCH ×2 (09:32→20:40)
[2018-03-12] MEDS: RIVASTIGMINE TARTRATE 1.5 MG CAPSULE PO SCH ×2 (09:32→20:40)
[2018-03-12] MEDS: POTASSIUM CHLORIDE 10 MEQ TAB.PRT.SR PO SCH (09:36)
[2018-03-12] MEDS: predniSONE 1 MG TABLET PO SCH (09:36)
[2018-03-12] MEDS: FUROSEMIDE 20 MG TABLET PO SCH (09:36)
[2018-03-12] MEDS: ASPIRIN 81 MG TAB.CHEW PO SCH (09:37)
[2018-03-12] MEDS: Z GUARD REMEDY PASTE 57 GM TUBE TOP SCH ×2 (09:43→20:40)
[2018-03-12 16:35] VITALS: BP 150/85
[2018-03-12] MEDS: LORAZEPAM 1 MG TABLET PO PRN (17:55)
[2018-03-12 20:12] VITALS: BP 145/75
[2018-03-12] MEDS: MIRTAZAPINE 15 MG TABLET PO SCH (20:40)
[2018-03-12] MEDS: ATORVASTATIN 10 MG TABLET PO SCH (20:40)
--- NOTE | 2018-03-13 01:45 | NUR ---
PATIENT NOTED AWAKE, TALKING TO HERSELF IN HER BED. A "SLEEPING PILL" WAS OFFERED; HOWEVER, PATIENT REFUSED. WILL CONTINUE TO MONITOR CLOSELY. Addendum: 03/14/18 at 0206 by KATHRINE SÁNCHEZ RN . EG
--- NOTE | 2018-03-13 05:53 | NUR ---
Pt slept the whole shift except when aroused for VS monitoring a few times. VS WNL. Refused her meds. No s/sx of distress noted. Respirations even and unlabored.. Frequent checks done. Kept in a position of comfort.
--- NOTE | 2018-03-13 06:48 | NUR ---
Pt took a shower, now watching TV in the activity room with other pts.
[2018-03-13] MEDS: LEVOTHYROXINE SODIUM 88 MCG TABLET PO SCH (07:00)
[2018-03-13 07:30] VITALS: BP 143/77
[2018-03-13] MEDS: Z GUARD REMEDY PASTE 57 GM TUBE TOP SCH ×2 (08:05→21:24)
[2018-03-13] MEDS: FOLIC ACID 1 MG TABLET PO SCH (09:00)
[2018-03-13] MEDS: CHOLECALCIFEROL 1,000 UNIT TABLET PO SCH (09:00)
[2018-03-13] MEDS: risperiDONE 0.5 MG TABLET PO SCH ×2 (09:00→21:00)
[2018-03-13] MEDS: predniSONE 1 MG TABLET PO SCH (09:00)
[2018-03-13] MEDS: POTASSIUM CHLORIDE 10 MEQ TAB.PRT.SR PO SCH (09:00)
[2018-03-13] MEDS: ASPIRIN 81 MG TAB.CHEW PO SCH (09:00)
[2018-03-13] MEDS: FUROSEMIDE 20 MG TABLET PO SCH (09:00)
[2018-03-13] MEDS: RIVASTIGMINE TARTRATE 1.5 MG CAPSULE PO SCH ×2 (09:00→21:00)
[2018-03-13 16:54] VITALS: BP 113/81
--- NOTE | 2018-03-13 20:00 | NUR ---
RECEIVED PATIENT IN BED. SHE IS NOTED AWAKE A/O X1. CONFUSED, FORGETFUL. IMPAIRED INSIGHT NOTED TO THE REASON FOR HER ADMISSION TO M[facility]. UNABLE TO AMBULATE. PATIENT NOTED WITH FLIGHT OF IDEAS, INCONGRUENT AFFECT, DISORGANIZED, CONFUSED. UNABLE TO COMPLY WITH MEDICATION REGIMENT AT THIS TIME. WILL CONTINUE TO MONITOR FOR PAIN, FACIAL GRIMACE, SKIN INTEGRITY. CONTINUE TO TURNED AND REPOSITION Q2HRS AND PRN. SAFETY EMPHASIS, BED AT LOWEST POSITION WITH WHEELS LOCKED, ALARM ON, AND FREQUENT HEAD CHECKS.
[2018-03-13 20:06] VITALS: BP 130/74
[2018-03-13] MEDS: ATORVASTATIN 10 MG TABLET PO SCH (21:00)
[2018-03-13] MEDS: MIRTAZAPINE 15 MG TABLET PO SCH (21:00)
--- NOTE | 2018-03-13 22:30 | NUR ---
AFTER MULTIPLE ATTEMPTS, PATIENT REFUSED ALL HER QHS MEDICATION. WILL CONTINUE TO MONITOR CLOSELY.
--- NOTE | 2018-03-14 01:45 | NUR ---
PATIENT NOTED AWAKE, TALKING TO HERSELF IN HER BED. A "SLEEPING PILL" WAS OFFERED; HOWEVER, PATIENT REFUSED. WILL CONTINUE TO MONITOR CLOSELY.
--- NOTE | 2018-03-14 02:31 | NUR ---
PATIENT CONTINUE AWAKE, TALKING TO HERSELF, YELLING AT TIMES. ATIVAN 1MG PO PRN WAS OFFERED; HOWEVER, PATIENT SPITTED UP THE PILL. WILL CONTINUE TO MONITOR.
[2018-03-14] MEDS: LEVOTHYROXINE SODIUM 88 MCG TABLET PO SCH (07:00)
[2018-03-14 07:30] VITALS: BP 129/66
[2018-03-14] MEDS: CHOLECALCIFEROL 1,000 UNIT TABLET PO SCH (09:00)
[2018-03-14] MEDS: FUROSEMIDE 20 MG TABLET PO SCH (09:00)
[2018-03-14] MEDS: POTASSIUM CHLORIDE 10 MEQ TAB.PRT.SR PO SCH (09:00)
[2018-03-14] MEDS: risperiDONE 0.5 MG TABLET PO SCH ×2 (09:00→20:31)
[2018-03-14] MEDS: ASPIRIN 81 MG TAB.CHEW PO SCH (09:00)
[2018-03-14] MEDS: predniSONE 1 MG TABLET PO SCH (09:00)
[2018-03-14] MEDS: FOLIC ACID 1 MG TABLET PO SCH (09:00)
[2018-03-14] MEDS: RIVASTIGMINE TARTRATE 1.5 MG CAPSULE PO SCH ×2 (09:00→20:30)
[2018-03-14] MEDS: Z GUARD REMEDY PASTE 57 GM TUBE TOP SCH ×2 (09:29→20:34)
--- NOTE | 2018-03-14 13:40 | NUR ---
GPS/RN- PODIATRY CONSULT PATIENT REFUSED CONSULT. ANGRY AND IRRITABLE LABILE.
--- NOTE | 2018-03-14 16:07 | NUR ---
Firearms Report: Casing Sewer completed and submitted [employer] Firearms Report on 03/14/18 for [address] Disability certification.
[2018-03-14 16:54] VITALS: BP 149/63
[2018-03-14 19:30] VITALS: BP 129/72
--- NOTE | 2018-03-14 20:07 | NUR ---
DAY SHIFT STAFF REPORTED THAT Pt HAS BEEN REFUSING TO EAT AND DRINK THE WHOLE DAY. Pt HAS NOT URINATED TODAY. CORPORATE LEGAL ASSISTANT NURSE, NAVJOT, ATTEMPTED TO FEED Pt WITH JELL-O, ENSURE, WATER, BUT Pt REFUSED TO OPEN HER MOUTH. CHARGE NURSE NOTED THAT Pt IS LOOKING MORE UNSTABLE SINCE SHE HAS BEEN ADMITTED TO THE UNIT. CHARGE NURSE CONTACTED THE ON-CALL PHYSICIAN, DR. JAMA, REGARDING THE SITUATION. NOTIFIED PHYSICIAN THAT Pt WAS REFUSING ALL PO MEDS, AND ALL FOODS AND DRINKS. RECEIVED STAT ORDER TO DRAW LAB (BASIC METABOLIC PANEL AND COMPLETE BLOOD COUNT). LABS HAVE BEEN DRAWN, AWAITING RESULTS, WILL CALL DR. JAMA FOR ANY FURTHER ORDERS.
[2018-03-14 20:25] LABS: BASOPHILS # (AUTO) 0.1 K/uL (0.0-8.0); BASOPHILS % (AUTO) 0.6 % (0.0-2.0); EOSINOPHILS # (AUTO) 0.2 K/uL (0.0-0.7); EOSINOPHILS % (AUTO) 1.4 % (0.0-7.0); HEMATOCRIT 43.5 % (31.2-41.9); HEMOGLOBIN 14.3 g/dL (10.9-14.3); LYMPHOCYTES # (AUTO) 1.1 K/uL (20.0-40.0); LYMPHOCYTES % (AUTO) 8.6 % (20.5-51.5); MEAN CORPUSCULAR HGB CONC 33 g/dL (32.3-35.6); MEAN CORPUSCULAR VOLUME 85.4 fL (75.5-95.3); MONOCYTES # (AUTO) 0.9 K/uL (2.0-10.0); NEUTROPHILS # (AUTO) 10.6 K/uL (1.8-8.9); NEUTROPHILS % (AUTO) 82.4 % (38.5-71.5); PLATELET COUNT (AUTO) 301 K/uL (179-408); RED BLOOD CELL COUNT(AUTO) 5.09 MIL/uL (3.63-4.92); WHITE BLOOD COUNT (AUTO) 12.9 K/uL (3.8-11.8)
[2018-03-14] MEDS: ATORVASTATIN 10 MG TABLET PO SCH (20:30)
[2018-03-14] MEDS: MIRTAZAPINE 15 MG TABLET PO SCH (20:30)
[2018-03-14 20:36] LABS: CARBON DIOXIDE 27 mmol/L (21-32); CHLORIDE 104 mmol/L (98-107); CREATININE 0.7 mg/dL (0.6-1.3); GLUCOSE 101 mg/dL (74-106); POTASSIUM 3.9 mmol/L (3.5-5.1); UREA NITROGEN, BLOOD 27 mg/dL (7-18)
[2018-03-15] MEDS: LEVOTHYROXINE SODIUM 88 MCG TABLET PO SCH (06:29)
--- NOTE | 2018-03-15 06:35 | NUR ---
GPS: CONTINUE REFUSED PO MEDICATION. ASSISTED TO DRINK 120 CC WATER AND 60CC ENSURE. ASSISTED WITH ADL'S. SLEPT 10 HRS THROUGH THE NIGHT. CONTINUE MONITORING FOR SAFETY. Addendum: 03/15/18 at 0651 by NAVJOT JAMISON LVN SLEPT 9 HRS NOT 10 HRS.
[2018-03-15 07:30] VITALS: BP 107/59
[2018-03-15] MEDS ORDERED: SULFAMETH/TRIMETH 800/160 MG TABLET PO SCH (09:00)
[2018-03-15] MEDS: FOLIC ACID 1 MG TABLET PO SCH (09:00)
[2018-03-15] MEDS: FUROSEMIDE 20 MG TABLET PO SCH (10:00)
[2018-03-15] MEDS: predniSONE 1 MG TABLET PO SCH (10:00)
[2018-03-15] MEDS: CHOLECALCIFEROL 1,000 UNIT TABLET PO SCH (10:00)
[2018-03-15] MEDS: RIVASTIGMINE TARTRATE 1.5 MG CAPSULE PO SCH ×2 (10:00→20:16)
[2018-03-15] MEDS: ASPIRIN 81 MG TAB.CHEW PO SCH (10:00)
[2018-03-15] MEDS: POTASSIUM CHLORIDE 10 MEQ TAB.PRT.SR PO SCH (10:00)
[2018-03-15] MEDS: risperiDONE 0.5 MG TABLET PO SCH ×2 (10:00→20:16)
[2018-03-15 10:47] LABS: BASOPHILS # (AUTO) 0.1 K/uL (0.0-8.0); BASOPHILS % (AUTO) 0.5 % (0.0-2.0); EOSINOPHILS # (AUTO) 0.2 K/uL (0.0-0.7); EOSINOPHILS % (AUTO) 2.1 % (0.0-7.0); HEMATOCRIT 42.5 % (31.2-41.9); LYMPHOCYTES # (AUTO) 1.1 K/uL (20.0-40.0); LYMPHOCYTES % (AUTO) 10.4 % (20.5-51.5); MEAN CORPUSCULAR HEMOGLOBIN 28.3 uug (24.7-32.8); MEAN CORPUSCULAR HGB CONC 33 g/dL (32.3-35.6); MEAN CORPUSCULAR VOLUME 85.7 fL (75.5-95.3); MONOCYTES # (AUTO) 0.8 K/uL (2.0-10.0); MONOCYTES % (AUTO) 7.6 % (0.0-11.0); NEUTROPHILS # (AUTO) 8.7 K/uL (1.8-8.9); NEUTROPHILS % (AUTO) 79.4 % (38.5-71.5); PLATELET COUNT (AUTO) 317 K/uL (179-408); RED BLOOD CELL COUNT(AUTO) 4.96 MIL/uL (3.63-4.92)
[2018-03-15 10:57] LABS: CARBON DIOXIDE 27 mmol/L (21-32); CHLORIDE 104 mmol/L (98-107); CREATININE 0.9 mg/dL (0.6-1.3); GLUCOSE 106 mg/dL (74-106); POTASSIUM 3.6 mmol/L (3.5-5.1); UREA NITROGEN, BLOOD 30 mg/dL (7-18)
[2018-03-15] MEDS: CEFTRIAXONE 1 G VIAL IM SCH (11:53)
[2018-03-15] MEDS: Z GUARD REMEDY PASTE 57 GM TUBE TOP SCH ×2 (11:54→20:16)
--- NOTE | 2018-03-15 12:40 | NUR ---
GPS/RN- patient remains confused disoriented disorganized, poor insight, judgement impaired. patient in bed this am. placed on TRADING SPECIALIST set to prevent skin breakdown, redness noted on buttocks. pericare provided, patient voided. z guard applied. specialty mattress ordered, patient staying in bed this am, not trying to climb out of bed.
--- NOTE | 2018-03-15 12:43 | NUR ---
GPS/RN- patient refused meal assisted with meal, patient irritable refusing to open her mouth. able to push more fluids at this time. almost completing a bottle of water. patient has poor insight difficult to redirect. continue to monitor.
--- NOTE | 2018-03-15 15:13 | NUR ---
GPS.RN- Patient continues to have poor PO intake. patient tenting, no hydrating when offered. poor insight, patient with some redness to heels, blanchable. redness to buttocks, blanching. placed mepelex to sacrum to prevent breakdown. patient high risk for breakdown, failure to thrive.
--- NOTE | 2018-03-15 15:24 | NUR ---
WOUND CARE CONSULT: PT SEEN BY REQUEST OF NURSING STAFF FOR SACRAL AREA. SACRAL SCARRING NOTED AND PT NOTED TO BE EXTREMELY CACHECTIC. LEFT ARM EDEMA NOTED. DEFER TO MD FOR LEFT ARM EDEMA. ARM ELEVATED ON PILLOW. ALL SKIN PROTECTION RECOMMENDATIONS DISCUSSED WITH NURSING STAFF. FIRST STEP LOW AIRLOSS MATTRESS ORDERED. PT HAS LOST WEIGHT. DIETARY FOLLOWING PT. WILL SEE PRN. IN AGREEMENT WITH PLAN OF CARE. Addendum: 03/15/18 at 1526 by ARIADNE HAYS RN Amended: Links added.
--- NOTE | 2018-03-15 16:00 | NUR ---
GPS.RN- contacted [facility], Celia Wagner N.P. regarding concern of patient continues to guard left arm, swelling still noted. xray done previous of left forearm, negative for fracture. however possible cellulitis, thrombosis. recommendation was ultrasound. informed provider, new imaging or ultrasound. no orders received provider to see patient and assess further.
[2018-03-15 16:09] VITALS: BP 131/53
--- NOTE | 2018-03-15 17:48 | NUR ---
GPS/RN- Patient sitting up in [facility] this evening, assisted with meals only took a few bites, then began to refuse, patient has poor insight, then began to eat with her hands when checking on her again, patient attempting to eat pasta with fingers. attempted to assist patient refused, irritable,confused. offered sandwich patient holding but then noted that she placed on her tray. only took a few sips of water at dinner. Offered chocolate ensure, refused. Offered vanilla ensure, refused. patient becoming verbally abusive, then because tearful. continues nonsensical, confused and disorganized.
--- NOTE | 2018-03-15 18:30 | NUR ---
GPS/RN- patient assisted to bed was able to stay sitting in gerichair but not for too long, able to push some fluids, patient resistive with care and has impaired judgement, attempts to feed patient were made, patient would take a 3 or 4 bites then refuses. offered hydration, able to get some fluids to patient, refused ensure, offered other type of food since patient likes to eat with her hands and not utensils, offered sandwich and crackers, refused.
[2018-03-15 20:16] VITALS: BP 126/63
[2018-03-15] MEDS: ATORVASTATIN 10 MG TABLET PO SCH (20:16)
[2018-03-15] MEDS: MIRTAZAPINE 15 MG TABLET PO SCH (20:16)
--- NOTE | 2018-03-16 04:25 | NUR ---
Pt noted to have (L) arm swelling. Arm kept elevated on pillow throughout the shift. Will endorse to day shift to follow up with [employer].
[2018-03-16] MEDS: LEVOTHYROXINE SODIUM 88 MCG TABLET PO SCH (07:00)
[2018-03-16 07:30] VITALS: BP 104/66
[2018-03-16 08:09] LABS: BASOPHILS # (AUTO) 0.1 K/uL (0.0-8.0); BASOPHILS % (AUTO) 0.8 % (0.0-2.0); EOSINOPHILS # (AUTO) 0.3 K/uL (0.0-0.7); EOSINOPHILS % (AUTO) 1.9 % (0.0-7.0); HEMATOCRIT 44.4 % (31.2-41.9); HEMOGLOBIN 14.7 g/dL (10.9-14.3); LYMPHOCYTES % (AUTO) 7.6 % (20.5-51.5); MEAN CORPUSCULAR HEMOGLOBIN 28.2 uug (24.7-32.8); MEAN CORPUSCULAR HGB CONC 33 g/dL (32.3-35.6); MEAN CORPUSCULAR VOLUME 85.3 fL (75.5-95.3); MONOCYTES % (AUTO) 7.2 % (0.0-11.0); NEUTROPHILS # (AUTO) 11.2 K/uL (1.8-8.9); NEUTROPHILS % (AUTO) 82.5 % (38.5-71.5); PLATELET COUNT (AUTO) 332 K/uL (179-408); RED BLOOD CELL COUNT(AUTO) 5.21 MIL/uL (3.63-4.92); WHITE BLOOD COUNT (AUTO) 13.6 K/uL (3.8-11.8)
[2018-03-16 08:15] LABS: CARBON DIOXIDE 28 mmol/L (21-32); CHLORIDE 104 mmol/L (98-107); GLUCOSE 104 mg/dL (74-106); POTASSIUM 4.1 mmol/L (3.5-5.1); UREA NITROGEN, BLOOD 26 mg/dL (7-18)
[2018-03-16] MEDS: ASPIRIN 81 MG TAB.CHEW PO SCH (09:00)
[2018-03-16] MEDS: CHOLECALCIFEROL 1,000 UNIT TABLET PO SCH (09:00)
[2018-03-16] MEDS: risperiDONE 0.5 MG TABLET PO SCH (09:00)
[2018-03-16] MEDS: FUROSEMIDE 20 MG TABLET PO SCH (09:00)
[2018-03-16] MEDS: FOLIC ACID 1 MG TABLET PO SCH (09:00)
[2018-03-16] MEDS: POTASSIUM CHLORIDE 10 MEQ TAB.PRT.SR PO SCH (09:00)
[2018-03-16] MEDS: predniSONE 1 MG TABLET PO SCH (09:00)
[2018-03-16] MEDS: RIVASTIGMINE TARTRATE 1.5 MG CAPSULE PO SCH ×2 (09:00→20:15)
[2018-03-16] MEDS: Z GUARD REMEDY PASTE 57 GM TUBE TOP SCH ×2 (09:33→20:15)
--- NOTE | 2018-03-16 09:46 | NUR ---
Received Nutrition Consult 03/15/18 for poor intake, refusing meals. Patient has been re-assessed and recommendations have been entered. Addendum: 03/16/18 at [address] Amended: Links added.
[2018-03-16] MEDS: LORAZEPAM 1 MG TABLET PO PRN (10:31)
[2018-03-16] MEDS: CEFTRIAXONE 1 G VIAL IM SCH (12:35)
[2018-03-16 15:10] VITALS: BP 112/55
--- NOTE | 2018-03-16 15:21 | NUR ---
Gps/Carrot Tier- Assisted back to bed, coccygeal areas redness, peeling, site redressed w/ hydrogel,and mepilex, remains on air matress, heels floated, kept skin dry and clean , left arm elevated on pillow.Fluids/water offered, takes sips.patient resistive during her care.
--- NOTE | 2018-03-16 15:29 | NUR ---
Per RN, pt continues to refuse to eat/drink. Pt refusing straws as well. Addendum: 03/16/18 at [address] Amended: Links added.
[2018-03-16] MEDS: HALOPERIDOL 0.5 MG TABLET PO SCH (20:13)
[2018-03-16] MEDS: ATORVASTATIN 10 MG TABLET PO SCH (20:14)
[2018-03-16] MEDS: HALOPERIDOL LACTATE 5 MG/1 ML VIAL IM PRN (20:14)
[2018-03-16] MEDS: MIRTAZAPINE 15 MG TABLET PO SCH (20:14)
[2018-03-16 20:22] VITALS: BP 114/61
[2018-03-17] MEDS: LEVOTHYROXINE SODIUM 88 MCG TABLET PO SCH (06:05)
--- NOTE | 2018-03-17 06:08 | NUR ---
GPS: REFUSED AM PO MEDICATION. ASSISTED WITH ADL'S. PATIENT STILL UNCOOPERATIVE WITH DIET AND ADL'S. TURN Q 2 HRS FOR COMFORT. CONTINUE ENCOURAGING FOR PO INTAKE. CONTINUE PLAN OF CARE.
--- NOTE | 2018-03-17 06:10 | NUR ---
GPS: SLEPT 9 HRS THROUGH THE NIGHT.
[2018-03-17 07:15] LABS: BASOPHILS # (AUTO) 0.1 K/uL (0.0-8.0); EOSINOPHILS # (AUTO) 0.3 K/uL (0.0-0.7); EOSINOPHILS % (AUTO) 2.6 % (0.0-7.0); HEMATOCRIT 43.9 % (31.2-41.9); HEMOGLOBIN 14.5 g/dL (10.9-14.3); LYMPHOCYTES % (AUTO) 9.8 % (20.5-51.5); MEAN CORPUSCULAR HEMOGLOBIN 28.3 uug (24.7-32.8); MEAN CORPUSCULAR HGB CONC 33 g/dL (32.3-35.6); MEAN CORPUSCULAR VOLUME 85.6 fL (75.5-95.3); MONOCYTES # (AUTO) 0.8 K/uL (2.0-10.0); MONOCYTES % (AUTO) 8.2 % (0.0-11.0); NEUTROPHILS # (AUTO) 7.9 K/uL (1.8-8.9); NEUTROPHILS % (AUTO) 78.4 % (38.5-71.5); PLATELET COUNT (AUTO) 287 K/uL (179-408); RED BLOOD CELL COUNT(AUTO) 5.12 MIL/uL (3.63-4.92)
[2018-03-17 07:30] VITALS: BP 115/70
[2018-03-17 07:30] LABS: CARBON DIOXIDE 28 mmol/L (21-32); CHLORIDE 106 mmol/L (98-107); CREATININE 0.9 mg/dL (0.6-1.3); GLUCOSE 101 mg/dL (74-106); POTASSIUM 3.8 mmol/L (3.5-5.1); UREA NITROGEN, BLOOD 37 mg/dL (7-18)
[2018-03-17] MEDS: POTASSIUM CHLORIDE 10 MEQ TAB.PRT.SR PO SCH (09:00)
[2018-03-17] MEDS: FUROSEMIDE 20 MG TABLET PO SCH (09:00)
[2018-03-17] MEDS: ASPIRIN 81 MG TAB.CHEW PO SCH (09:00)
[2018-03-17] MEDS: RIVASTIGMINE TARTRATE 1.5 MG CAPSULE PO SCH (09:00)
[2018-03-17] MEDS: CHOLECALCIFEROL 1,000 UNIT TABLET PO SCH (09:00)
[2018-03-17] MEDS: HALOPERIDOL 0.5 MG TABLET PO SCH (09:00)
[2018-03-17] MEDS: predniSONE 1 MG TABLET PO SCH (09:00)
[2018-03-17] MEDS: FOLIC ACID 1 MG TABLET PO SCH (09:00)
[2018-03-17] MEDS: Z GUARD REMEDY PASTE 57 GM TUBE TOP SCH (09:50)
[2018-03-17] MEDS: HALOPERIDOL LACTATE 5 MG/1 ML VIAL IM PRN (09:51)
[2018-03-17] MEDS: CEFTRIAXONE 1 G VIAL IM SCH (11:42)
--- NOTE | 2018-03-17 13:00 | NUR ---
Gps/Satellite Manager- Patient continue to have poor intake , encouraged, offered to assist.with her meals, patient, refused, will not open her mount, yells during her care. Continue to offer fluids,juice of her choice, pt. continue to refused. Repositioned at a regular intervals, pressure relief., good skin care provided, remains on specialty bed/
[2018-03-17 15:52] VITALS: BP 134/72
--- NOTE | 2018-03-17 21:45 | NUR ---
DISCHARGED Pt TO 2ND FLOOR MED SURG UNIT WITH DIAGNOSIS OF FAILURE TO THRIVE. REPORT GIVEN TO NURSE, JANIE. Pt TRANSFERRED VIA GURNEY ACCOMPANIED BY RN AND BARKER PEELER. ALL NECESSARY DOCUMENTATIONS WERE SENT WITH Pt INCLUDING ORIGINAL HOLD, MEDICATION LIST, ORDERS, POLST, AND RIESE PETITION. Pt WILL HAVE 1:1 SITTER FOR SAFETY.
[2018-03-21] MEDS ORDERED: CLON1PAT TD (15:46)
== END 2018-03-17 20:47 | disposition short-term general hospital (02) | DRG 885 ==
LOC: ER 16:56 → GPS 20:14
PROVIDERS: ADMIT Psychiatry & Neurology Psychiatry; ATTEND Internal Medicine
DX: F32.3 Major depressive disorder, single episode, severe with psychotic features (principal); E43 Unspecified severe protein-calorie malnutrition; I11.0 Hypertensive heart disease with heart failure; N39.0 Urinary tract infection, site not specified; Z68.1 Body mass index [BMI] 19.9 or less, adult; M06.9 Rheumatoid arthritis, unspecified; I25.10 Atherosclerotic heart disease of native coronary artery without angina pectoris; Z79.899 Other long term (current) drug therapy; Z79.82 Long term (current) use of aspirin; Z66 Do not resuscitate; F03.90 Unspecified dementia, unspecified severity, without behavioral disturbance, psychotic disturbance, mood disturbance, and anxiety; R62.7 Adult failure to thrive; F41.9 Anxiety disorder, unspecified; E03.9 Hypothyroidism, unspecified; I50.9 Heart failure, unspecified; Z91.14 Patient's other noncompliance with medication regimen; J44.9 Chronic obstructive pulmonary disease, unspecified; E86.0 Dehydration
CPT/HCPCS: 36415; 71045; 73090; 80307; 85025; 87040; 92610; 93005; 97110; 97116; 97530; A4663; C1758; G0480; G0480-TC; J0696; J1630; J7512

== ENCOUNTER 2018-03-17 21:09 | Inpatient (IN) | payer MEDICARE, MEDICAID ==
[~2018-03-17] VITALS: Ht 165.1 cm; Wt 46.3 kg
[~2018-03-17 21:09] MED LIST changes: -MEMA5TAB PO
[2018-03-17] MEDS ORDERED: IV D5 1/2 NS 1000 ML 1,000 ML IV PRN (21:21)
[2018-03-17] MEDS ORDERED: ACETAMINOPHEN 325 MG TABLET PO PRN (21:30)
[2018-03-17] MEDS ORDERED: BISACODYL 10 MG SUPP.RECT RC PRN (21:30)
[2018-03-17] MEDS ORDERED: MAGNESIUM HYDROXIDE 30 ML LIQUID UDC PO PRN (21:30)
[2018-03-17] MEDS ORDERED: ACETAMINOPHEN 325 MG TABLET PO SCH (21:30)
[2018-03-17] MEDS ORDERED: ONDANSETRON 4 MG/2 ML VIAL IV PRN (21:30)
[2018-03-17] MEDS ORDERED: HYDROCODONE/APAP 5-325MG TABLET PO PRN (21:30)
[2018-03-17] MEDS ORDERED: CEFTRIAXONE 1 G VIAL IM SCH (21:30)
[2018-03-17] MEDS ORDERED: Z GUARD REMEDY PASTE 57 GM TUBE TOP PRN (21:30)
[2018-03-17 22:00] VITALS: BP 110/69
--- NOTE | 2018-03-17 22:00 | NUR ---
ADMITTED IN THE MED SURG FLOOR UNDER THE CARE OF AMADOU RIVERS, BELONGING LIST DONE. PATIENT AWAKE BUT NON VERBAL, REFUSED TO ANSWER QUESTION, BODY CHECK DONE WITH REDNESS ON COCCYX, AND HAS MULTIPLE BRUISE ON RIGHT UPPER ARM AND LOWER ARM, MULTIPLE BRUISE ON LEFT UPPER ARM AND LOWER ARMS, PAIN ON LEFT FOREARM XRAY WAS DONE NO FRACTURE PER RESULTS. ON 1;1 SITTER FOR SAFETY. CONT TO MONITOR, DENIES PAIN AT THIS TIME.
[2018-03-17] MEDS: IV D5 1/2 NS 1000 ML 1,000 ML IV PRN (23:16)
[2018-03-17] MEDS ORDERED: CEFTRIAXONE 1 G VIAL ONE (23:57)
[2018-03-18 04:00] VITALS: BP 127/64
[2018-03-18] MEDS: ENOXAPARIN SODIUM 30 MG/0.3 ML DISP.SYRIN SQ SCH ×2 (04:17→20:57)
--- NOTE | 2018-03-18 05:52 | NUR ---
PATIENT SLEPT 5 HOURS AND 15 MIN. NO SOB NO CHEST PAIN NOTED, RENDERED GOOD ADAN CARE INCONTINENCE OF BOWEL AND BLADDER. CONT ON 1;1 SITTER FOR SAFETY. KEPT CLEAN AND DRY. CONT TO MONITOR.
[2018-03-18 05:54] LABS: BASOPHILS # (AUTO) 0.1 K/uL (0.0-8.0); BASOPHILS % (AUTO) 0.7 % (0.0-2.0); EOSINOPHILS # (AUTO) 0.4 K/uL (0.0-0.7); EOSINOPHILS % (AUTO) 3.9 % (0.0-7.0); HEMATOCRIT 38.9 % (31.2-41.9); HEMOGLOBIN 12.9 g/dL (10.9-14.3); MEAN CORPUSCULAR HEMOGLOBIN 28.2 uug (24.7-32.8); MEAN CORPUSCULAR HGB CONC 33 g/dL (32.3-35.6); MEAN CORPUSCULAR VOLUME 85.4 fL (75.5-95.3); MONOCYTES # (AUTO) 0.8 K/uL (2.0-10.0); MONOCYTES % (AUTO) 7.8 % (0.0-11.0); NEUTROPHILS # (AUTO) 7.8 K/uL (1.8-8.9); NEUTROPHILS % (AUTO) 77.6 % (38.5-71.5); PLATELET COUNT (AUTO) 290 K/uL (179-408); RED BLOOD CELL COUNT(AUTO) 4.56 MIL/uL (3.63-4.92); WHITE BLOOD COUNT (AUTO) 10.1 K/uL (3.8-11.8)
[2018-03-18] MEDS: LEVOTHYROXINE SODIUM 88 MCG TABLET PO SCH (06:33)
[2018-03-18 06:36] LABS: CARBON DIOXIDE 31 mmol/L (21-32); CHLORIDE 106 mmol/L (98-107); CREATININE 0.8 mg/dL (0.6-1.3); GLUCOSE 115 mg/dL (74-106); PHOSPHOROUS 2.9 mg/dL (2.5-4.9); POTASSIUM 3.5 mmol/L (3.5-5.1); UREA NITROGEN, BLOOD 28 mg/dL (7-18)
[2018-03-18 08:00] VITALS: BP 145/63
[2018-03-18] MEDS: ASPIRIN 81 MG TAB.CHEW PO SCH (08:46)
[2018-03-18] MEDS: FOLIC ACID 1 MG TABLET PO SCH (08:46)
[2018-03-18] MEDS: CHOLECALCIFEROL 1,000 UNIT TABLET PO SCH (08:46)
[2018-03-18] MEDS: predniSONE 1 MG TABLET PO SCH (08:46)
[2018-03-18] MEDS: PANTOPRAZOLE SODIUM 40 MG VIAL IV SCH (08:55)
--- NOTE | 2018-03-18 10:15 | NUR ---
Called granddaughter Radha Khan [phone], obtained information for POA contact: Thomas Rodriguez [phone] and Judith Rodriguez [phone]. Relayed information to SUSAN Araujo.
[2018-03-18 12:00] VITALS: BP 134/67
--- NOTE | 2018-03-18 13:00 | NUR ---
Patient able to feed self, appetite improved compared to morning/breakfast.
--- NOTE | 2018-03-18 18:00 | NUR ---
Patient is on tele sinus rhythm with PJCs, ST depression, T inversion. Addendum: 03/19/18 at 0730 by STEVE JOHNSON RN AMEND: PLS DISREGARD NOTES ABOVE
--- NOTE | 2018-03-18 18:34 | NUR ---
Patient is alert, confused, in no distress. IVF running, no infiltration noted. 1:1 sitter provided, safety measures in place. Patient monitored for meal intake, strict i/o as ordered. Patient kept clean/dry, repositioned for comfort. Addendum: 03/19/18 at 0730 by STEVE JOHNSON RN Add: Pt no behavioral issues throughout the shift.
[2018-03-18] MEDS: IV D5 1/2 NS 1000 ML 1,000 ML IV PRN (18:45)
[2018-03-18 19:00] VITALS: BP 156/77
--- NOTE | 2018-03-18 19:45 | NUR ---
RECEIVED IN BED, AWAKE BUT FORGETFUL, REPORT STILL POOR PO INTAKE, REFUSED TO DRINK, OR ATE MEAL ADEQUATELY, CONT ON 1;1 SITTER FOR SAFETY, NO SOB NO CHEST PAIN, NO COMPLAIN OF PAIN AT THIS TIME. CONT TO MONITOR.
[2018-03-18] MEDS: CEFTRIAXONE 1 G in IV DEXTROSE 5% 50 ML IV SCH (20:43)
[2018-03-18] MEDS: ATORVASTATIN 10 MG TABLET PO SCH (20:44)
[2018-03-18] MEDS ORDERED: DOCUSATE SODIUM 100 MG CAPSULE PO SCH (21:00)
--- NOTE | 2018-03-19 | NUR ---
PATIENT SEEN BY DR. HIPOLITO POZO AND MD MENTION THAT HE WOULD RECOMMEND PATIENT TO HAVE SWALLOW EVAL FIRST, AND THEN GO FROM THERE.
[2018-03-19 04:00] VITALS: BP 156/63
[2018-03-19] MEDS: PANTOPRAZOLE SODIUM 40 MG VIAL IV SCH (05:59)
[2018-03-19] MEDS: LEVOTHYROXINE SODIUM 88 MCG TABLET PO SCH (06:08)
--- NOTE | 2018-03-19 06:10 | NUR ---
PATIENT SLEPT FOR 1 1/2 HRS ONLY, PATIENT REFUSED TO DRINK FLUIDS, REFUSED PO MEDS, GETS AGITATED WHEN ATTEMPT TO GIVE FLUIDS, CONT ON 1;1 SITTER FOR SAFETY. CHANGED DIAPERS 3X. NO SOB NO CHEST PAIN, CALL LIGHT WITHIN REACH.
[2018-03-19 06:35] LABS: BASOPHILS # (AUTO) 0.1 K/uL (0.0-8.0); BASOPHILS % (AUTO) 0.7 % (0.0-2.0); EOSINOPHILS # (AUTO) 0.3 K/uL (0.0-0.7); EOSINOPHILS % (AUTO) 3.4 % (0.0-7.0); HEMATOCRIT 41.8 % (31.2-41.9); HEMOGLOBIN 13.8 g/dL (10.9-14.3); LYMPHOCYTES # (AUTO) 0.6 K/uL (20.0-40.0); LYMPHOCYTES % (AUTO) 7.4 % (20.5-51.5); MEAN CORPUSCULAR HEMOGLOBIN 28.9 uug (24.7-32.8); MEAN CORPUSCULAR HGB CONC 33 g/dL (32.3-35.6); MONOCYTES # (AUTO) 0.7 K/uL (2.0-10.0); MONOCYTES % (AUTO) 9.2 % (0.0-11.0); NEUTROPHILS # (AUTO) 6.4 K/uL (1.8-8.9); NEUTROPHILS % (AUTO) 79.3 % (38.5-71.5); PLATELET COUNT (AUTO) 226 K/uL (179-408); WHITE BLOOD COUNT (AUTO) 8.1 K/uL (3.8-11.8)
[2018-03-19 06:43] LABS: CARBON DIOXIDE 29 mmol/L (21-32); CHLORIDE 104 mmol/L (98-107); CREATININE 0.7 mg/dL (0.6-1.3); GLUCOSE 103 mg/dL (74-106); POTASSIUM 3.5 mmol/L (3.5-5.1); UREA NITROGEN, BLOOD 13 mg/dL (7-18)
[2018-03-19] MEDS: ASPIRIN 81 MG TAB.CHEW PO SCH (08:00)
[2018-03-19] MEDS: CHOLECALCIFEROL 1,000 UNIT TABLET PO SCH (08:00)
[2018-03-19] MEDS: FOLIC ACID 1 MG TABLET PO SCH (08:00)
[2018-03-19] MEDS: predniSONE 1 MG TABLET PO SCH (08:01)
[2018-03-19] MEDS: PANTOPRAZOLE ORAL SUSPENSION 40 MG SUSPDR.PKT PO SCH (11:21)
[2018-03-19 12:00] VITALS: BP 162/84
--- NOTE | 2018-03-19 12:45 | NUR ---
MD/GLOST [employer]N [employer]ACER NOTIFIED REGARDING PT'S BP 162/84 HR 70. PT IS ALERT, IN NO DISTRESS, FAMILY AT BEDSIDE AND FEEDING PATIENT.
[2018-03-19] MEDS: HYDROCODONE/APAP 5-325MG TABLET PO PRN (13:40)
[2018-03-19] MEDS: IV D5 1/2 NS 1000 ML 1,000 ML IV PRN (15:15)
[2018-03-19 16:00] VITALS: BP 134/70
--- NOTE | 2018-03-19 18:10 | NUR ---
Patient is on a 14 day hold expires 03/26/18 for gravely disabled. Patient slept intermittently, in no distress. Patient has poor intake, frequent encouragement for food/liquid. Patient is non cooperative, unable to participate/care for self. Patient kept clean/dry, repositioned for comfort. IVF running, no infiltration noted. 1:1 sitter provided for safety.
[2018-03-19 19:00] VITALS: BP 128/68
--- NOTE | 2018-03-19 19:41 | NUR ---
PATIENT IN BED LEAVE DINNER TRAY BEC LIKES TO PICK AND CHOSE FOOD SHE LIKES,, NO COMPLAIN OF PAIN, CONT ON 1;1 SITTER FOR SAFETY, PATIENT STILL HAS EPISODES OF EATING MEAL ADEQUATELY, REFUSED TO BE FED AND ASSIST WITH FLUIDS. CONT TO ENCOURAGE TO EAT AND DRINK.
[2018-03-19] MEDS: CEFTRIAXONE 1 G in IV DEXTROSE 5% 50 ML IV SCH (20:22)
[2018-03-19] MEDS: DOCUSATE SODIUM 100 MG/10 ML LIQUID UDC PO SCH (20:24)
[2018-03-19] MEDS: ATORVASTATIN 10 MG TABLET PO SCH (20:25)
[2018-03-19] MEDS: ENOXAPARIN SODIUM 30 MG/0.3 ML DISP.SYRIN SQ SCH (20:27)
[2018-03-20 04:00] VITALS: BP 164/74
--- NOTE | 2018-03-20 05:13 | NUR ---
PATIENT SLEPT FOR 7 HRS, NO SOB NO CHEST PAIN NOTED, NO CONGESTION NOTED, PATIENT REFUSED TO DRINK FLUIDS, REFUSED TO TAKE MEDICATIONS ALSO, NEEDS LOTS OF ENCOURAGEMENT. TURN AND REPOSITION EVERY TWO HOURS, CONT ON 1;1 SITTER FOR SAFETY. CALL LIGHT WITHIN REACH.
--- NOTE | 2018-03-20 07:10 | NUR ---
Received report from hourly shift manager nurse, patient in bed awake, no evidence of distress noted at this time, bed in low position, side rails up x2, sitter at bedside, air mattress inflated.
[2018-03-20 07:38] VITALS: BP 145/83
[2018-03-20 08:00] VITALS: BP 145/83
[2018-03-20] MEDS: LEVOTHYROXINE SODIUM 88 MCG TABLET PO SCH (08:23)
[2018-03-20 08:28] LABS: BASOPHILS % (AUTO) 0.4 % (0.0-2.0); EOSINOPHILS # (AUTO) 0.2 K/uL (0.0-0.7); EOSINOPHILS % (AUTO) 3.4 % (0.0-7.0); HEMOGLOBIN 14.3 g/dL (10.9-14.3); LYMPHOCYTES # (AUTO) 0.4 K/uL (20.0-40.0); LYMPHOCYTES % (AUTO) 5.6 % (20.5-51.5); MEAN CORPUSCULAR HGB CONC 33 g/dL (32.3-35.6); MONOCYTES # (AUTO) 0.5 K/uL (2.0-10.0); MONOCYTES % (AUTO) 6.6 % (0.0-11.0); NEUTROPHILS # (AUTO) 5.9 K/uL (1.8-8.9); PLATELET COUNT (AUTO) 223 K/uL (179-408); RED BLOOD CELL COUNT(AUTO) 4.95 MIL/uL (3.63-4.92); WHITE BLOOD COUNT (AUTO) 7.1 K/uL (3.8-11.8)
[2018-03-20] MEDS: predniSONE 5 MG/5 ML LIQ UDC PO SCH (08:46)
[2018-03-20] MEDS: CHOLECALCIFEROL 1,000 UNIT TABLET PO SCH (08:53)
[2018-03-20] MEDS: FOLIC ACID 1 MG TABLET PO SCH (08:53)
[2018-03-20] MEDS: PANTOPRAZOLE ORAL SUSPENSION 40 MG SUSPDR.PKT PO SCH (08:53)
[2018-03-20] MEDS: ASPIRIN 81 MG TAB.CHEW PO SCH (08:53)
[2018-03-20 09:11] LABS: CARBON DIOXIDE 28 mmol/L (21-32); CHLORIDE 101 mmol/L (98-107); CREATININE 0.7 mg/dL (0.6-1.3); GLUCOSE 108 mg/dL (74-106); MAGNESIUM 1.7 mg/dL (1.8-2.4); PHOSPHOROUS 2.7 mg/dL (2.5-4.9); POTASSIUM 3.6 mmol/L (3.5-5.1); UREA NITROGEN, BLOOD 8 mg/dL (7-18)
[2018-03-20] MEDS ORDERED: MAGNESIUM SULFATE/D5W 100 ML IV SCH (11:45)
--- NOTE | 2018-03-20 11:48 | NUR ---
WOUND CARE CONSULT: PT PRESENTS EXTREMELY CACHECTIC WITH VERY BONY SACRAL AREA. RECOMMENDATIONS MADE FOR SKIN PROTECTION AND CARE. DISCUSSED WITH NURSING STAFF. PT ON FIRST STEP CIRRUS MATTRESS (LOW AIRLOSS). ALL SKIN PROTECTION MEASURES IN PLACE. WILL SEE PRN. RECOMMEND DIETARY FOLLOWUP. PT HAS LOST WEIGHT AND IS NOT EATING. MD IN AGREEMENT WITH PLAN OF CARE. Addendum: 03/20/18 at 1149 by ARIADNE HAYS RN Amended: Links added.
[2018-03-20] MEDS: IV D5 1/2 NS 1000 ML 1,000 ML IV PRN (15:45)
[2018-03-20 16:45] VITALS: BP 167/77
[2018-03-20] MEDS: HYDROCODONE/APAP 5-325MG TABLET PO PRN (16:56)
--- NOTE | 2018-03-20 18:40 | NUR ---
PATIENT HAS NOT BEEN COOPERATIVE WITH CARE, FREQUENT DENIAL OF FOOD, MEDICATION AND OTHER CARE BEING GIVEN. CURRENTLY PATIENT IS IN BED, BED IN LOW POSITION, SIDE RAILS UP X2, SITTER AT BEDSIDE FOR SAFETY.
[2018-03-20 20:00] VITALS: BP 149/81
--- NOTE | 2018-03-20 20:00 | NUR ---
PT'S AWAKE FOR HERSELF.DENIED OF PAIN OR ANY DISCOMFORT.1:1 SITTER AT THE BEDSIDE FOR SAFETY.PT'S SCREAMING AND YELLING WHILE GETTING CARE,COMBATIVE SOMETIMES.PER REPORT FROM AM SHIFT,PT REFUSED TO EAT DINNER. AT 21:00;OFFERED PT FOR APPLE SAUCE,PT TOOK FOR 1/4 CUP AND STATED THAT "I DON'T WANT IT".REINFORCED NEED.CLOSELY MONITORING TO PT.PT REFUSED SOME OF MEDICATION RECORD. SAFETY REINFORCED.1:1 SITTER.BED ALARM'S ON.
[2018-03-20] MEDS: CEFTRIAXONE 1 G in IV DEXTROSE 5% 50 ML IV SCH (20:54)
[2018-03-20] MEDS: DOCUSATE SODIUM 100 MG/10 ML LIQUID UDC PO SCH (20:54)
[2018-03-20] MEDS: ATORVASTATIN 10 MG TABLET PO SCH (20:54)
[2018-03-20] MEDS: ENOXAPARIN SODIUM 30 MG/0.3 ML DISP.SYRIN SQ SCH (20:55)
--- NOTE | 2018-03-20 22:30 | NUR ---
CALLED [facility] AT THIS TIME AND SPOKE TO IRONER SOCK REGARDING THE ORDER TO D/C 30 DAYS HOLD,PER CHARGE NURSE NO INTERVENTION NEED.
[2018-03-21 05:30] VITALS: BP 155/83
--- NOTE | 2018-03-21 06:30 | NUR ---
ASSISTED PT FOR AM CARE ON BED,PT'S COOPERATIVE W/ASSISTANCE BUT SCREAMING ON/OFF.PT ACCEPTED ONLY 2 SPOONS OF APPLE SAUCE AT THIS TIME,STATED THAT"I DON'T WANT IT".KEPT COMFORT.1:1 SITTER FOR SAFETY NOTED.MAINTAINED IVF ORDER.PT SLEPT FOR 4 HOURS IN THE SHIFT NOTED.
[2018-03-21 06:48] LABS: BASOPHILS # (AUTO) 0.1 K/uL (0.0-8.0); BASOPHILS % (AUTO) 0.7 % (0.0-2.0); EOSINOPHILS # (AUTO) 0.2 K/uL (0.0-0.7); EOSINOPHILS % (AUTO) 2.8 % (0.0-7.0); HEMATOCRIT 41.2 % (31.2-41.9); LYMPHOCYTES # (AUTO) 0.3 K/uL (20.0-40.0); LYMPHOCYTES % (AUTO) 4.3 % (20.5-51.5); MEAN CORPUSCULAR HEMOGLOBIN 29.1 uug (24.7-32.8); MEAN CORPUSCULAR HGB CONC 34 g/dL (32.3-35.6); MEAN CORPUSCULAR VOLUME 85.5 fL (75.5-95.3); MONOCYTES # (AUTO) 0.4 K/uL (2.0-10.0); MONOCYTES % (AUTO) 6.1 % (0.0-11.0); NEUTROPHILS # (AUTO) 6.1 K/uL (1.8-8.9); NEUTROPHILS % (AUTO) 86.1 % (38.5-71.5); PLATELET COUNT (AUTO) 219 K/uL (179-408); RED BLOOD CELL COUNT(AUTO) 4.82 MIL/uL (3.63-4.92); WHITE BLOOD COUNT (AUTO) 7.1 K/uL (3.8-11.8)
[2018-03-21 06:58] LABS: CARBON DIOXIDE 29 mmol/L (21-32); CHLORIDE 100 mmol/L (98-107); CREATININE 0.6 mg/dL (0.6-1.3); GLUCOSE 125 mg/dL (74-106); MAGNESIUM 1.9 mg/dL (1.8-2.4); PHOSPHOROUS 2.8 mg/dL (2.5-4.9); POTASSIUM 3.5 mmol/L (3.5-5.1); UREA NITROGEN, BLOOD 6 mg/dL (7-18)
--- NOTE | 2018-03-21 07:10 | NUR ---
Received report from shift leader nurse, patient in bed asleep, no distress noted at this time, bed in low position, side rails up x2. sitter at bedside.
[2018-03-21 07:20] VITALS: BP 167/90
[2018-03-21] MEDS: LEVOTHYROXINE SODIUM 88 MCG TABLET PO SCH (07:30)
[2018-03-21] MEDS: predniSONE 5 MG/5 ML LIQ UDC PO SCH (09:00)
[2018-03-21] MEDS: ASPIRIN 81 MG TAB.CHEW PO SCH (09:00)
[2018-03-21] MEDS: PANTOPRAZOLE ORAL SUSPENSION 40 MG SUSPDR.PKT PO SCH (09:00)
[2018-03-21] MEDS: CHOLECALCIFEROL 1,000 UNIT TABLET PO SCH (09:00)
[2018-03-21] MEDS: FOLIC ACID 1 MG TABLET PO SCH (09:00)
[2018-03-21 12:00] VITALS: BP 147/89
[2018-03-21] MEDS: IV D5 1/2 NS 1000 ML 1,000 ML IV PRN (15:23)
[2018-03-21 15:41] VITALS: BP 150/84
[2018-03-21] MEDS ORDERED: CLON1PAT TD (15:46)
[2018-03-21] MEDS ORDERED: CLONIDINE-TTS 1 PATCH TD SCH (16:00)
[2018-03-21 16:09] VITALS: BP 165/89
--- NOTE | 2018-03-21 17:02 | NUR ---
PATIENTS FAMILY (SHARON) WAS PRESENT TODAY AND DISCHARGE INSTRUCTIONS WERE GIVEN TO HIM. REPORT CALLED TO NILTON JIMENEZ AND PICTURES TAKEN OF PATIENTS HEALED SACRAL WOUND.
== END 2018-03-21 17:10 | DRG 640 ==
LOC: MED 21:09
PROVIDERS: ADMIT Psychiatry & Neurology Psychiatry; ATTEND Internal Medicine
DX: R62.7 Adult failure to thrive (principal); N17.0 Acute kidney failure with tubular necrosis; G92 Toxic encephalopathy; E43 Unspecified severe protein-calorie malnutrition; N39.0 Urinary tract infection, site not specified; F03.91 Unspecified dementia, unspecified severity, with behavioral disturbance; I50.32 Chronic diastolic (congestive) heart failure; R45.851 Suicidal ideations; Z68.1 Body mass index [BMI] 19.9 or less, adult; F05 Delirium due to known physiological condition; E03.9 Hypothyroidism, unspecified; E83.42 Hypomagnesemia; E86.0 Dehydration; E87.6 Hypokalemia; F03.90 Unspecified dementia, unspecified severity, without behavioral disturbance, psychotic disturbance, mood disturbance, and anxiety; F41.9 Anxiety disorder, unspecified; I25.10 Atherosclerotic heart disease of native coronary artery without angina pectoris; I11.0 Hypertensive heart disease with heart failure; F32.9 Major depressive disorder, single episode, unspecified; I25.2 Old myocardial infarction; M81.0 Age-related osteoporosis without current pathological fracture; M19.90 Unspecified osteoarthritis, unspecified site; Z91.81 History of falling; Z95.5 Presence of coronary angioplasty implant and graft; Z98.1 Arthrodesis status; J44.9 Chronic obstructive pulmonary disease, unspecified; E88.09 Other disorders of plasma-protein metabolism, not elsewhere classified; Z73.6 Limitation of activities due to disability; R53.1 Weakness; M06.9 Rheumatoid arthritis, unspecified; Z66 Do not resuscitate; F29 Unspecified psychosis not due to a substance or known physiological condition
CPT/HCPCS: 36415; 83735; 84100; 85025; 92610; A4663; C9113; J0696; J1650; J3475; J3490; J7060; J7510; J7512